=== PATIENT | female | born 1965 | race Caucasian/White ===

== ENCOUNTER 2020-10-22 07:26 | Outpatient (REF) | payer OTHER, SELFPAY ==
--- NOTE | 2020-10-22 07:32 | MM_ITS ---
EXAMINATION: MM SCREENING DIGITAL BREAST TOMOSYNTHESIS, BILATERAL CLINICAL INFORMATION: Screening. Asymptomatic. The lifetime risk of breast cancer based on the Tyrer-Cuzick Model is 4.1%. COMPARISON: Mammography: October 18, 2019 and studies dating back to June 30, 2012 TECHNIQUE: Digital breast tomosynthesis is performed in both the craniocaudal and mediolateral oblique views along with computer-aided detection (CAD). Synthesized 2D images are generated from the tomosynthesis. FINDINGS: There are scattered areas of fibroglandular density (ACR BI-RADS breast composition Category b). There are no significant masses, abnormal calcifications, or other abnormalities. MM/MM tomosynthesis screening BI IMPRESSION: There are no significant changes from prior study. ASSESSMENT: BI-RADS 1: Negative RECOMMENDATION: Routine annual mammography screening. This patient's information was entered into a reminder system with a target due date for their next mammogram.
== END 2020-10-22 07:27 | disposition home or self-care (01) ==
LOC: HO.MAMMO 07:26
PROVIDERS: PCP Nurse Practitioner Family; Visit Provider Family Medicine
DX: Z12.31 Encounter for screening mammogram for malignant neoplasm of breast (principal)
CPT/HCPCS: 77063; 77067

== ENCOUNTER 2021-08-20 14:03 | Outpatient (REF) | payer OTHER, SELFPAY | END 2021-08-20 14:04 | disposition home or self-care (01) | LOC: HO.LNP 14:03 | PROVIDERS: Visit Provider Physician Assistant Medical | DX: L02.91 Cutaneous abscess, unspecified (principal) | CPT/HCPCS: 87071; 87205 ==

== ENCOUNTER 2021-11-25 08:00 | Outpatient (REF) | payer OTHER, SELFPAY ==
--- NOTE | ~2021-11-25 | MM_ITS ---
EXAMINATION: MM SCREENING DIGITAL BREAST TOMOSYNTHESIS, BILATERAL CLINICAL INFORMATION: Screening. Asymptomatic. The lifetime risk of breast cancer based on the Tyrer-Cuzick Model is 4%. COMPARISON: Mammography: 10/22/2020, 10/18/2019, 08/16/2018, 06/27/2017 TECHNIQUE: Digital breast tomosynthesis is performed in both the craniocaudal and mediolateral oblique views along with computer-aided detection (CAD). Synthesized 2D images are generated from the tomosynthesis. FINDINGS: There are scattered areas of fibroglandular density (ACR BI-RADS breast composition Category b). There are no significant masses, abnormal calcifications, or other abnormalities. Parenchymal pattern is similar to prior studies. There is no developing density or architectural abnormality. The axilla and skin contours are unremarkable. No significant changes. MM/MM tomosynthesis screening BI IMPRESSION: No mammographic evidence of malignancy. ASSESSMENT: BI-RADS 1: Negative RECOMMENDATION: Routine annual mammography screening. This patient's information was entered into a reminder system with a target due date for their next mammogram.
== END 2021-11-25 08:01 | disposition home or self-care (01) ==
LOC: HO.MAMMO 08:00
PROVIDERS: PCP Internal Medicine; Visit Provider Internal Medicine
DX: Z12.31 Encounter for screening mammogram for malignant neoplasm of breast (principal)
CPT/HCPCS: 77063; 77067

== ENCOUNTER 2022-01-20 07:12 | Outpatient (REF) | payer OTHER, SELFPAY ==
[2022-01-20 11:29] LABS: MANUAL DIFF FLAG NO
[2022-01-20 11:41] LABS: Basophils Percent Auto 0.7 % (0-2); Hematocrit 38.7 % (37.0-47.0); Hemoglobin 12.5 g/dl (12.0-16.0); Imm Gran Abs Auto 0.01 X10*3/uL (0.00-0.03); Imm Gran Pct Auto 0.3 % (0.0-0.4); Lymphocytes Absolute Auto 1.1 X10*3/uL (1.2-4.9); Lymphocytes Percent Auto 37.7 % (20-40); Mean Corpuscular HGB Conc 32.3 g/dl (31.0-35.0); Mean Corpuscular Volume 105.2 fL (80.0-98.0); Mean Platelet Volume 9.8 fL (9.4-12.3); Monocytes Absolute Auto 0.4 X10*3/uL (0.1-1.2); Monocytes Percent Auto 14.4 % (2-11); Neutrophils Absolute Auto 1.4 x10*3/uL (2.0-8.3); Neutrophils Percent Auto 46.9 % (45-73); Platelet Count 255 X10*3/uL (160-400); Red Blood Count 3.68 X10*6/uL (4.20-5.50); Red Cell Distribution Width 12.4 % (11.0-16.0); White Blood Count 2.9 X10*3/uL (4.8-10.8)
[2022-01-20 12:13] LABS: Alanine Aminotransferase 16 U/L (0-31); Albumin Level 4.3 g/dL (3.5-5.0); Alkaline Phosphatase 64 U/L (39-117); Anion Gap 10 (12-20); Aspartate Amino Transferase 17 U/L (5-31); Bilirubin Total 0.7 mg/dL (0.0-1.0); Blood Urea Nitrogen 9 mg/dL (9-16); Calcium 9.6 mg/dL (8.4-10.2); Carbon Dioxide 30 mmol/L (22-29); Chloride 100 mmol/L (96-108); Cholesterol 239 mg/dL; Estimated Glomerular Filt Rate > 60; Glucose Fasting 104 mg/dL (60-99); HDL Cholesterol 90 mg/dL; LDL Cholesterol Calculated 137 mg/dl; Potassium 4.3 mmol/L (3.3-5.1); Sodium 136 mmol/L (135-145); Total Protein 6.7 g/dL (6.5-8.0); Triglycerides 63 mg/dL
[2022-01-20 12:16] LABS: Free T4 (Free Thyroxine) 1.16 ng/dL (0.71-1.85); Thyroid Stimulating Hormone 0.88 uIU/mL (0.32-4.0)
[2022-01-20 12:36] LABS: Folate 3.5 ng/mL (> or = 4.0); Vitamin B12 243 pg/mL (200-900)
[2022-01-21 10:11] LABS: Thyroglobulin Antibodies 8 IU/mL (< or = 1); Thyroid Peroxidase Antibodies >900 IU/mL (<9)
[2022-01-24 16:56] LABS: Vitamin D 25-OH, D2 <4 ng/mL; Vitamin D 25-OH, D3 31 ng/mL; Vitamin D 25-OH, Total 31 ng/mL (30-100)
== END 2022-01-20 07:13 | disposition home or self-care (01) ==
LOC: HO.HMGCLDS 07:12
PROVIDERS: Visit Provider Internal Medicine
DX: E55.9 Vitamin D deficiency, unspecified (principal); D75.89 Other specified diseases of blood and blood-forming organs; E03.9 Hypothyroidism, unspecified; Z88.9 Allergy status to unspecified drugs, medicaments and biological substances; Z82.49 Family history of ischemic heart disease and other diseases of the circulatory system
CPT/HCPCS: 36415; 80053; 80061; 82306; 82607; 82746; 84439; 84443; 85025; 86376; 86800

== ENCOUNTER 2022-03-03 11:02 | Outpatient (REF) | payer OTHER, SELFPAY ==
--- NOTE | ~2022-03-03 | XR_ITS ---
EXAMINATION: XR LUMBOSACRAL SPINE XR HIP, RIGHT CLINICAL INFORMATION: Hip pain. COMPARISON: None TECHNIQUE: 2 views right hip. 4 views lumbosacral spine. RIGHT HIP: 2 views of the right hip demonstrate the femoral head contour to be smooth. There is no significant degeneration. The joint space appears fairly well preserved. LUMBOSACRAL SPINE: 4 views of the lumbosacral spine AP and lateral demonstrate mild scoliosis convex right apex at L3. There is no listhesis or compression injury. There is felt to be loss of disc height at multiple levels but the vertebral heights are fairly well preserved. Likely degenerative changes at L4-L5 and L5-S1 in the posterior elements. XR/XR lumbar spine 2-3V IMPRESSION: No bony finding in the right hip. Some evidence of early degenerative changes in the lumbosacral spine. Most noted in the lower lumbar region. No listhesis or compression injury.
--- NOTE | ~2022-03-03 | XR_ITS ---
EXAMINATION: XR LUMBOSACRAL SPINE XR HIP, RIGHT CLINICAL INFORMATION: Hip pain. COMPARISON: None TECHNIQUE: 2 views right hip. 4 views lumbosacral spine. RIGHT HIP: 2 views of the right hip demonstrate the femoral head contour to be smooth. There is no significant degeneration. The joint space appears fairly well preserved. LUMBOSACRAL SPINE: 4 views of the lumbosacral spine AP and lateral demonstrate mild scoliosis convex right apex at L3. There is no listhesis or compression injury. There is felt to be loss of disc height at multiple levels but the vertebral heights are fairly well preserved. Likely degenerative changes at L4-L5 and L5-S1 in the posterior elements. XR/XR hip RT min 2V IMPRESSION: No bony finding in the right hip. Some evidence of early degenerative changes in the lumbosacral spine. Most noted in the lower lumbar region. No listhesis or compression injury.
== END 2022-03-03 11:03 | disposition home or self-care (01) ==
LOC: HO.XRAY 11:02
PROVIDERS: PCP Internal Medicine; Visit Provider Internal Medicine
DX: M25.551 Pain in right hip (principal); M54.31 Sciatica, right side
CPT/HCPCS: 72100; 73502

== ENCOUNTER 2022-04-06 07:38 | Outpatient (REF) | payer OTHER, SELFPAY ==
--- NOTE | ~2022-04-06 | XR_ITS ---
EXAMINATION: XR SHOULDER, LEFT CLINICAL INFORMATION: Pain COMPARISON: Previous x-ray from 2009 and MRI 2011 TECHNIQUE: Three views of the left shoulder. FINDINGS: Bone alignment is normal. No fracture or dislocation is seen. The glenohumeral joint is normal. There is mild arthritis at the acromioclavicular joint with small osteophytes. There are mild degenerative changes of the greater tuberosity. Soft tissues are unremarkable. XR/XR shoulder LT min 2V IMPRESSION: Mild degenerative changes at the acromioclavicular joint.
== END 2022-04-06 07:39 | disposition home or self-care (01) ==
LOC: HO.HOSX 07:38
PROVIDERS: Visit Provider Physician Assistant
DX: M75.102 Unspecified rotator cuff tear or rupture of left shoulder, not specified as traumatic (principal)
CPT/HCPCS: 20610; 73030; 99202; J1040

== ENCOUNTER 2022-04-21 08:00 | Outpatient (RCR) | payer OTHER, SELFPAY ==
--- NOTE | 2022-03-18 16:34 | MHC.PT.EP ---
[facility] [place] [facility] [place] [facility] [place] [facility] [address] Amada Tinajero [address] [phone] F: [phone] F: [phone] F: [phone] F: [phone] Physical Therapy Plan of Care Date of Evaluation: Date of Surgery: Diagnosis: Pain in L shoulder. Assessment: Pt is a 56 y/o female referred to PT for eval and treat of L shoulder pain who presents with signs and sx consistent with shoulder dysfunction resulting in decreased tolerance and ability to perform reaching a high shelf, dressing pullovers, reaching neck and back for hygiene/ dressing and carrying objects of weight secondary to decreased UE strength and ROM, decreased posture, increased tissue tension and pain. Pt is deemed an appropriate candidate to receive skilled PT in order to address her physical limitations to improve her functional ability. Frequency and Duration: The patient will be seen 2 x / wk x 5 wks. Short Term Goals: Initiate HEP. Improve baseline pain to < 3/10 with activity; initial 5/0. Snf Goals: I with HEP. improve L shoulder ER MMT by at least 1/2 MMT grade; initial 4-/5. Pt will be able to dress pullovers with managed Sx; initial: 5/10. Pt will be able to place object on high shelf with managed Sx; initial: 5/10. Treatment Plan: Modalities to reduce pain, spasms and effusion. Manual therapy to restore motion and function. Therapeutic exercise to improve strength and flexibility. Neuromuscular re-education for posture and balance. Therapeutic activities to return to functional activities of daily living. Electronically signed by: Tahir Vidales PT. Please sign and return to therapist. Thank you for your referral.
== END 2022-04-21 09:11 | disposition home or self-care (01) ==
LOC: HO.PTCHIC 08:00
PROVIDERS: PCP Internal Medicine; Visit Provider Internal Medicine
DX: M25.512 Pain in left shoulder (principal)
CPT/HCPCS: 97110; 97161

== ENCOUNTER 2022-08-27 07:10 | Outpatient (REF) | payer OTHER, SELFPAY ==
[2022-08-27 11:25] LABS: MANUAL DIFF FLAG NO
[2022-08-27 11:44] LABS: Basophils Percent Auto 0.9 % (0-2); Eosinophils Percent Auto 0.9 % (0-4); Hematocrit 36.3 % (37.0-47.0); Hemoglobin 12.3 g/dl (12.0-16.0); Lymphocytes Absolute Auto 1.3 X10*3/uL (1.2-4.9); Lymphocytes Percent Auto 38.5 % (20-40); Mean Corpuscular HGB Conc 33.9 g/dl (31.0-35.0); Mean Corpuscular Hemoglobin 34.9 pg (27.0-33.0); Mean Corpuscular Volume 103.1 fL (80.0-98.0); Mean Platelet Volume 9.8 fL (9.4-12.3); Monocytes Absolute Auto 0.5 X10*3/uL (0.1-1.2); Monocytes Percent Auto 16.2 % (2-11); Neutrophils Absolute Auto 1.4 x10*3/uL (2.0-8.3); Neutrophils Percent Auto 43.5 % (45-73); Platelet Count 260 X10*3/uL (160-400); Red Blood Count 3.52 X10*6/uL (4.20-5.50); White Blood Count 3.3 X10*3/uL (4.8-10.8)
[2022-08-27 12:25] LABS: Folate > 20.0 ng/mL (> or = 4.0); Vitamin B12 366 pg/mL (200-900)
[2022-08-27 12:26] LABS: Thyroid Stimulating Hormone 2.19 uIU/mL (0.32-4.0)
[2022-08-27 12:28] LABS: Alanine Aminotransferase 18 U/L (0-31); Albumin Level 4.5 g/dL (3.5-5.0); Alkaline Phosphatase 58 U/L (39-117); Anion Gap 16 (12-20); Aspartate Amino Transferase 20 U/L (5-31); Bilirubin Total 0.4 mg/dL (0.0-1.0); Blood Urea Nitrogen 6 mg/dL (9-16); Calcium 9.5 mg/dL (8.4-10.2); Carbon Dioxide 25 mmol/L (22-29); Chloride 97 mmol/L (96-108); Cholesterol 247 mg/dL; Estimated Glomerular Filt Rate > 60; Glucose Fasting 90 mg/dL (60-99); HDL Cholesterol 95 mg/dL; LDL Cholesterol Calculated 138 mg/dl; Potassium 4.2 mmol/L (3.3-5.1); Sodium 134 mmol/L (135-145); Total Protein 6.9 g/dL (6.5-8.0); Triglycerides 73 mg/dL
== END 2022-08-27 07:11 | disposition home or self-care (01) ==
LOC: HO.HMGCLDS 07:10
PROVIDERS: PCP Internal Medicine; Visit Provider Internal Medicine
DX: Z00.00 Encounter for general adult medical examination without abnormal findings (principal); E53.8 Deficiency of other specified B group vitamins; E03.9 Hypothyroidism, unspecified; E78.5 Hyperlipidemia, unspecified; D72.819 Decreased white blood cell count, unspecified
CPT/HCPCS: 36415; 80053; 80061; 82607; 82746; 84443; 85025

== ENCOUNTER → 2022-09-09 13:55 | Outpatient (BNVA) | payer OTHER, SELFPAY | PROVIDERS: PCP Internal Medicine; Visit Provider Physician Assistant | DX: M75.102 Unspecified rotator cuff tear or rupture of left shoulder, not specified as traumatic (principal) | CPT/HCPCS: 20610; J1100 ==

== ENCOUNTER 2022-12-01 07:40 | Outpatient (REF) | payer OTHER, SELFPAY ==
--- NOTE | ~2022-12-01 | MM_ITS ---
EXAMINATION: MM SCREENING DIGITAL BREAST TOMOSYNTHESIS, BILATERAL CLINICAL INFORMATION: Screening. Asymptomatic. The lifetime risk of breast cancer based on the Tyrer-Cuzick Model is 3.9%. COMPARISON: Mammography: November 25, 2021 and studies dating back to December 23, 2015 TECHNIQUE: Digital breast tomosynthesis is performed in both the craniocaudal and mediolateral oblique views along with computer-aided detection (CAD). Synthesized 2D images are generated from the tomosynthesis. FINDINGS: There are scattered areas of fibroglandular density (ACR BI-RADS breast composition Category b). There are no significant masses, abnormal calcifications, or other abnormalities. MM/MM tomosynthesis screening BI IMPRESSION: No significant changes from prior exam. ASSESSMENT: BI-RADS 1: Negative RECOMMENDATION: Routine annual mammography screening. This patient's information was entered into a reminder system with a target due date for their next mammogram.
== END 2022-12-01 07:41 | disposition home or self-care (01) ==
LOC: HO.MAMMO 07:40
PROVIDERS: PCP Internal Medicine; Visit Provider Internal Medicine
DX: Z12.31 Encounter for screening mammogram for malignant neoplasm of breast (principal)
CPT/HCPCS: 77063; 77067

== ENCOUNTER 2023-02-23 07:02 | Outpatient (REF) | payer OTHER, SELFPAY ==
[2023-02-23 12:27] LABS: Alanine Aminotransferase 20 U/L (0-31); Albumin Level 4.2 g/dL (3.5-5.0); Alkaline Phosphatase 60 U/L (39-117); Anion Gap 9 (12-20); Aspartate Amino Transferase 21 U/L (5-31); Bilirubin Total 0.5 mg/dL (0.0-1.0); Blood Urea Nitrogen 8 mg/dL (9-16); Calcium 9.4 mg/dL (8.4-10.2); Carbon Dioxide 32 mmol/L (22-29); Chloride 101 mmol/L (96-108); Cholesterol 254 mg/dL; Estimated Glomerular Filt Rate > 60; Glucose Fasting 89 mg/dL (60-99); HDL Cholesterol 81 mg/dL; LDL Cholesterol Calculated 150 mg/dl; Potassium 4.3 mmol/L (3.3-5.1); Sodium 138 mmol/L (135-145); Total Protein 6.6 g/dL (6.5-8.0); Triglycerides 116 mg/dL
[2023-02-23 12:46] LABS: Folate 17.9 ng/mL (> or = 4.0); Thyroid Stimulating Hormone 1.49 uIU/mL (0.32-4.0); Vitamin B12 511 pg/mL (200-900)
== END 2023-02-23 07:03 | disposition home or self-care (01) ==
LOC: HO.HMGCLDS 07:02
PROVIDERS: PCP Internal Medicine; Visit Provider Internal Medicine
DX: M25.551 Pain in right hip (principal); E78.5 Hyperlipidemia, unspecified; E06.3 Autoimmune thyroiditis; E53.8 Deficiency of other specified B group vitamins
CPT/HCPCS: 36415; 80053; 80061; 82607; 82746; 84443

== ENCOUNTER → 2023-05-11 11:02 | Outpatient (BNVA) | payer OTHER, SELFPAY | PROVIDERS: PCP Internal Medicine; Visit Provider Anesthesiology | DX: G89.4 Chronic pain syndrome (principal); M46.1 Sacroiliitis, not elsewhere classified; M53.3 Sacrococcygeal disorders, not elsewhere classified; M51.36 Other intervertebral disc degeneration, lumbar region; M54.50 Low back pain, unspecified | CPT/HCPCS: 99202 ==

== ENCOUNTER 2023-05-31 06:10 | Outpatient (REF) | payer OTHER, SELFPAY ==
--- NOTE | ~2023-05-31 | FL_ITS ---
EXAMINATION: XR FLUOROSCOPY WITH IMAGES CLINICAL INFORMATION: Sacroiliitis, not elsewhere classified. Right SI joint injection. COMPARISON: None available. TECHNIQUE: Fluoroscopy Supervised By: Dr. Yakov Gruber. Fluoroscopy Time: 0.1 minute. Cumulative Dose: 0.680 mGy. DAP: 0.0118 Gycm2. Images: 1. FINDINGS: A single digital image reveals needle positioned in the right SI joint with contrast opacifying adjacent soft tissues and the SI joint. The SI joints spaces maintained normal. No bony abnormality seen on the visualized images. FL/FL guidance in treatment room IMPRESSION: Fluoroscopy was provided to referring physician for right SI joint injection.
== END 2023-05-31 06:11 | disposition home or self-care (01) ==
LOC: CF 06:10
PROVIDERS: Visit Provider Anesthesiology
DX: M46.1 Sacroiliitis, not elsewhere classified (principal); M54.50 Low back pain, unspecified; M53.3 Sacrococcygeal disorders, not elsewhere classified; M51.36 Other intervertebral disc degeneration, lumbar region
CPT/HCPCS: 27096; A9585

== ENCOUNTER 2023-05-31 13:01 | Outpatient (AMB) | payer OTHER, SELFPAY ==
--- NOTE | 2023-05-31 13:10 | MHC.OFFVIS ---
Intake Vital Signs 05/31/23 13:11 05/31/23 14:45 Height 5 ft 3 in 5 ft 3 in Weight 108 lb 108 lb BMI 19.1 19.1 BP 120/58 L 98/58 L Blood Pressure Location Lt brachial Rt brachial Position Sitting Sitting Respiration 12 14 Pulse 103 H 66 Pulse Source Pulse Oximeter Pulse Oximeter Pulse Oximetry (%) 98 99 Oxygen Delivery Method Room Air Room Air Comment Pre-Op Post-op Intake Visit Reasons: R DX SIJ INJ *Tetracain/chlorprocaine/gadavist Allergies erythromycin base [ERYTHROMYCIN BASE] Allergy (Intermediate, Verified 05/31/23 13:15) HIVES gluten [GLUTEN] Allergy (Intermediate, Verified 05/31/23 13:15) tongue swells, tingling peanut Allergy (Intermediate, Verified 05/31/23 13:15) TONGUE SWELLS soy [SOY] Allergy (Intermediate, Verified 05/31/23 13:15) tongue swells PFSH Medical History Autoimmune thyroiditis B12 deficiency Chronic leukopenia Hyponatremia Hypothyroidism Left shoulder pain Macrocytosis Migraines Multiple allergies Nausea Physical exam Right hip pain Right sided sciatica Surgical History History of cholecystectomy History of foot surgery Tubal ligation status Family History Mother Lung cancer Hypercholesteremia Father No problems noted. Family/Other Substance use disorder Mental health disorder Social History Housing: House Alcohol intake: former Patient Tobacco Use Status: Former Tobacco user Tobacco use type: Cigarette e-Cigarette/Vaping Use: Never Used Second Hand Smoke Exposure: No service: No Current occupational status: employed Current occupational exposures/hazards: No Cognitive needs: No Hearing needs: No Vision needs: No Physical Exam Vital Signs: Last Vital Signs Pulse 66 05/31/23 14:45 Resp 14 05/31/23 14:45 BP 98/58 L 05/31/23 14:45 Pulse Ox 99 05/31/23 14:45 Oxygen Delivery Method Room Air 05/31/23 14:45 BMI result Body Mass Index 19.1 Assessment & Plan Assessment & Plan (1) Low back pain: Code(s): M54.50 - Low back pain, unspecified (2) Sacroiliitis: Code(s): M46.1 - Sacroiliitis, not elsewhere classified Plan: Right diagnostic sacroiliac joint injection. Informed consent was explained thoroughly to the patient. All questions about benefits and risks for the procedure were answered. Patient came to the operating room and was positioned prone on the operating table with the pillow under the pelvis. Time out was performed delineating name and of the patient, allergies and the nature of the procedure. Patient reported unknown allergies as a rash and swelling of the tissues of the face and neck as result of epidural steroid injections. The decision was made to avoid a might local anesthetics and iodine containing contrasts: See below. The lower back and buttocks of the patient were prepped with ChloraPrep prepped and draped with sterile utility towels. C-arm was brought over the operating field and sq picture of patient's pelvis was demonstrated on the screen. For the right joint tilting C-arm contralateral to the site of the joint the most posterior portion of the joints was superimposed with anterior silhouette of the joint. Skin was injected in the projection of the joint slightly medial to the location of the joint with 25 gauge 1/2 inch needle using local lidocaine 2% .After that 22 gauge 3 and 1/2 inch needle was driven to the right joint in tunnel vision fashion. When needle entered the joint capsule injection of the contrast gadavist was performed demonstrating intra-articular and minimally periarticular spread of the contrast. After that 4 cc. of tetracaine 1% mixed with chlorpromazine 1% was injected into the joint. Upon completion of the injections the needle was removed Sterile dressing was applied. Upon completion of the injection patient was taken outside of the operating room to the recovery room where recovered uneventfully. (3) Sacroiliac joint dysfunction of right side: Code(s): M53.3 - Sacrococcygeal disorders, not elsewhere classified (4) Disc degeneration, lumbar: Code(s): M51.36 - Other intervertebral disc degeneration, lumbar region (5) Chronic pain syndrome: Code(s): G89.4 - Chronic pain syndrome Plan Without MRI available to me I cannot make in conclusion how significant the nerve root compression was demonstrated on her MRI. The [facility] performed therapeutic transforaminal epidural steroid injection on the right at L5 nerve root and she developed allergy. She reported at the best her pain relief lasted after the procedure only for couple of weeks. After physical examination I thing her problem mostly secondary to sacroiliitis on the right. I would like to perform diagnostic sacroiliac joint injection to support this hunch. However she developed unknown medication allergies during the 1st injection. It could be allergy to contrast media or local anesthetic. I will request full description of the procedure from [facility]. I also will request full report of the MRI from [facility]. I also will consider sending this patient to Joey castellano to determine which medication actually she is allergic to. In 2 weeks she will give us a call and the we will decide whether not she is ready to go for right diagnostic sacroiliac joint injection. Theoretically I can perform injection with tetracaine and use chloroprocaine for the skin to avoid amide local anesthetics she most likely had when she had TFESI. Orders: Orders FL guidance in treatment room 05/31/23 M46.1 - Sacroiliitis, not elsewhere classified Coding Level of Care Code Procedure Only Diagnoses Low back pain M54.50 Sacroiliitis M46.1 Sacroiliac joint dysfunction of right side M53.3 Disc degeneration, lumbar M51.36 Chronic pain syndrome G89.4
[2023-05-31 13:11] VITALS: BP 120/58; PULSE 103; RESP 12; O2SAT 98; BMI 19.1
[2023-05-31 14:45] VITALS: BP 98/58; PULSE 66; RESP 14; O2SAT 99; BMI 19.1
== END 2023-05-31 14:28 | disposition home or self-care (01) ==
PROVIDERS: PCP Internal Medicine; Visit Provider Anesthesiology
DX: M46.1 Sacroiliitis, not elsewhere classified (principal)
CPT/HCPCS: 27096

== ENCOUNTER 2023-06-02 10:39 | Outpatient (AMB) | payer OTHER, SELFPAY ==
--- NOTE | 2023-06-02 10:40 | A.OFFVIS_ITS ---
Intake Vital Signs 06/02/23 10:45 Height 5 ft 3 in Weight 108 lb BMI 19.1 BP 128/80 Blood Pressure Location Rt brachial Position Sitting Respiration 16 Pulse 58 Pulse Source Pulse Oximeter Pulse Oximetry (%) 98 Oxygen Delivery Method Room Air Intake Visit Reasons: R DX SIJ INJ 05/31/23 Intake Note: patient comes in for post-op. Allergies erythromycin base [ERYTHROMYCIN BASE] Allergy (Intermediate, Verified 06/02/23 10:40) HIVES gluten [GLUTEN] Allergy (Intermediate, Verified 06/02/23 10:40) tongue swells, tingling peanut Allergy (Intermediate, Verified 06/02/23 10:40) TONGUE SWELLS soy [SOY] Allergy (Intermediate, Verified 06/02/23 10:40) tongue swells HPI HPI Comments History of Present Illness Details Belen is in my office to discuss the results of sacroiliac joint injection on the right diagnostic. She reports almost complete pain relieve on the right after the injection. Interestingly enough she reports pain aggravation at the left side. She reports improvement in the pain in the lower extremity as well after the injection. The pain was not eliminated completely in the lower extremity but it was significantly improved at least 50%. The longevity of the pain relief lasted at least 5-6 hours which corresponds to the action of the tetracaine, medication with which injection was performed. Few mode of treatments were explained to the patient. I explained to her possibility to treat her pain with sacroiliac joint stabilization and fusion on the right, potentially bilateral. Also explained to her possibility to treat her pain with PNS stim wave on the right potentially bilateral as well. We can take a closer look to the MRI of this patient after the procedure would be done for possibility of pain radiating to the right lower extremity. I explained to the patient that steroid injections could be done for the patient after she would go to allergologist in December of 2023 -to rule out allergy to any medi cations with which she received epidural steroid injection with [facility]. The patient is not sure what mode of action she will choose. She will give us a call when she will decide what she wants to do. Prior: very pleasant 57 years old female who presents in my office with complains on lower back pain with radiation of the pain to the level of the ankle on the lateral surface of the right lower extremity. She reports her pain started 1 year ago about February of 2022. She relates this pain to her job which is requiring her to perform heavy lifting from time to time. She was a subject of [facility] practice and received L5 transforaminal epidural steroid injection. She developed severe allergic reaction to 1 of her medications which were given during the procedure. It was rash and skin redness As well as itching all over the body. She is working part-time 28 hours a week. She reports that movements aggravate her pain. Heat cold and topical medications as well as oral medications alleviate her pain. The pain is most severe after work and the level of the pain is 6 to 7/10. Her past medical history significant for hypothyroidism headaches and GERD. Past surgical history significant for gallbladder surgery appendectomy and bilateral tubal ligation twice. Apparently after the 1st bilateral tubal ligation she delivered a healthy child. [facility] Medical History Autoimmune thyroiditis B12 deficiency Chronic leukopenia Hyponatremia Hypothyroidism Left shoulder pain Macrocytosis Migraines Multiple allergies Nausea Physical exam Right hip pain Right sided sciatica Surgical History History of cholecystectomy History of foot surgery Tubal ligation status Family History Mother Lung cancer Hypercholesteremia Father No problems noted. Family/Other Substance use disorder Mental health disorder Social History Housing: House Alcohol intake: former Patient Tobacco Use Status: Former Tobacco user Tobacco use type: Cigarette e-Cigarette/Vaping Use: Never Used Second Hand Smoke Exposure: No service: No Current occupational status: employed Current occupational exposures/hazards: No Cognitive needs: No Hearing needs: No Vision needs: No Review of Systems Const All systems reviewed & are unremarkable except as noted in HPI and below ENT Reports Normal hearing present Neuro Reports Normal hearing present, Denies Abnormal speech present, Denies confusion and Denies Sensory deficit (Neuro) Psych Denies confusion Physical Exam Vital Signs: Last Vital Signs Pulse 58 06/02/23 10:45 Resp 16 06/02/23 10:45 BP 128/80 06/02/23 10:45 Pulse Ox 98 06/02/23 10:45 Oxygen Delivery Method Room Air 06/02/23 10:45 BMI result Body Mass Index 19.1 Const General: no acute distress; No confusion Orientation/consciousness: patient oriented x3 and No confusion Eyes General: appearance normal, both eyes and all related structures Pupils: Equal, round and reactive pupils present EOM: EOMs intact bilaterally Neck Neck: Yes full ROM Chest Chest palpation & inspection: normal inspection of the chest Resp Effort & Inspection: normal respiratory effort, able to speak in complete sentences, normal respiratory pattern, no audible wheezes and no cough Cardio Jugular venous distension: no JVD GI Inspection: Yes normal to inspection Back/Spine/Pelvis Other: Able to stand on bilateral tiptoes and bilateral heels without difficulty. Able to flex her right hip as well as her left hip without difficulty against resistance. Reports aggravation of the pain with hip flexion against resistance-[facility] positive test. SLR is negative for pain increase. Dorsiflexion of bilateral feet at maximal SLR is negative for pain increase. She reports pain on the back of her legs with SLR but not increase of the pain in bilateral areas of her lumbar spine. Able full flex herself forward and backwards but reports pain aggravation with flexing forward as well as flexing backwards. Neuro General: patient oriented x3, gait normal and No confusion Cranial nerves: Yes CN's II-XII intact bilaterally, Yes Equal, round and reactive pupils present, Yes Normal hearing present and Yes Ability to bila terally elevate shoulders present Speech: No Abnormal speech present Gait exam (Neuro): Normal gait present Motor exam (neuro): 5/5 motor strength present throughout Sensory Exam: No Sensory deficit (Neuro) Extrem General: No pedal edema Psych Speech and movement: Normal speech and movement present Affect: normal affect Attitude: cooperative Thought process: Normal thought process present Thought content: Normal thought content present Insight: Good insight present (Psych) Judgement: Good judgement present (Psych) Assessment & Plan Assessment & Plan (1) Low back pain: Code(s): M54.50 - Low back pain, unspecified (2) Sacroiliitis: Code(s): M46.1 - Sacroiliitis, not elsewhere classified (3) Sacroiliac joint dysfunction of right side: Code(s): M53.3 - Sacrococcygeal disorders, not elsewhere classified (4) Disc degeneration, lumbar: Code(s): M51.36 - Other intervertebral disc degeneration, lumbar region (5) Chronic pain syndrome: Code(s): G89.4 - Chronic pain syndrome Plan Without MRI available to me I cannot make in conclusion how significant the nerve root compression was demonstrated on her MRI. The [facility] performed therapeutic transforaminal epidural steroid injection on the right at L5 nerve root and she developed allergy. She reported at the best her pain relief lasted after the procedure only for couple of weeks. After physical examination I thing her problem mostly secondary to sacroiliitis on the right. I would like to perform diagnostic sacroiliac joint injection to support this hunch. However she developed unknown medication allergies during the 1st injection. It could be allergy to contrast media or local anesthetic. I am still waiting for MRI from [facility] to be delivered to us. However meanwhile I at least at this time fairly convinced that her major problem is sacroiliitis. Diagnostic sacroiliac joint injection resulted in significant pain relieve on the right. She got injected very small does of tetracaine into the right SI joint. Interestingly enough her left SI joint started to hurt more after the injection. Potentially she has bilateral sacroiliitis. Pain tech SI stabilization with fusion was explained to the patient. PNS stim wave also was explained to the patient's. Steroid injections also potentially available to treat her pain however only after December of 2023 when she will have her appointment with allergologist. She was not sure what to choose she will think about the options and she will give us a call and schedule an appointment to discuss it. Coding Level of Care Code Est Pt Level 4 (06981) Diagnoses Low back pain M54.50 Sacroiliitis M46.1 Sacroiliac joint dysfunction of right side M53.3 Disc degeneration, lumbar M51.36 Chronic pain syndrome G89.4
[2023-06-02 10:45] VITALS: BP 128/80; PULSE 58; RESP 16; O2SAT 98; BMI 19.1
== END 2023-06-02 11:18 | disposition home or self-care (01) ==
PROVIDERS: PCP Internal Medicine; Visit Provider Anesthesiology
DX: M54.50 Low back pain, unspecified (principal); M46.1 Sacroiliitis, not elsewhere classified; M53.3 Sacrococcygeal disorders, not elsewhere classified; M51.36 Other intervertebral disc degeneration, lumbar region; G89.4 Chronic pain syndrome
CPT/HCPCS: 99214

== ENCOUNTER → 2023-06-02 10:39 | Outpatient (BNVA) | payer OTHER, SELFPAY | PROVIDERS: PCP Internal Medicine; Visit Provider Anesthesiology | DX: M54.50 Low back pain, unspecified (principal); M46.1 Sacroiliitis, not elsewhere classified; M53.3 Sacrococcygeal disorders, not elsewhere classified; M51.36 Other intervertebral disc degeneration, lumbar region; G89.4 Chronic pain syndrome | CPT/HCPCS: 99212 ==

== ENCOUNTER 2023-06-02 19:15 | Emergency (ER) | payer OTHER, SELFPAY ==
--- NOTE | ~2023-06-02 | XR_ITS ---
EXAMINATION: XR FOOT, RIGHT CLINICAL INFORMATION: Pain. COMPARISON: None available. TECHNIQUE: AP, lateral, and oblique views of the right foot. FINDINGS: There is expansile lesion in the proximal end proximal phalanx fifth digit with pathological f fracture suspected. There is likely partial amputation fifth distal metacarpal. Rest of the visualized left foot is unremarkable. The ankle mortise and subtalar joints are normal. XR/XR foot RT min 3V IMPRESSION: 1. Expansile lesion proximal end proximal phalanx fifth digit with pathological fracture suspected. Recommend MRI with and without contrast. 2. There is partial amputation distal fifth metatarsal.. 3. Rest of the right foot is unremarkable
[2023-06-02 19:24] VITALS: BP 121/82; PULSE 96; RESP 18; TEMP 36.7; O2SAT 99; BMI 19.6
--- NOTE | 2023-06-02 20:07 | ED_ITS ---
HPI - Extremity Injury (Lower) General Chief Complaint: Extremity Injury, Lower Stated Complaint: Injury to right pinky toe Time Seen by Provider: 06/02/23 19:51 Source: patient and family Mode of arrival: ambulatory Limitations: no limitations History of Present Illness HPI Narrative: 57-year-old female walked to the emergency department after she stub her right foot at the bottom of the bed causing deformity of the small toe, patient declined any fall after no other injuries. Related Data Home Medications Medication Instructions Recorded Confirmed acetaminophen 500 mg tablet 1,000 mg PO Q6H PRN 04/16/22 03/09/23 (Tylenol Extra Strength) Previous Rx's Medication Instructions Recorded cetirizine 10 mg capsule (Zyrtec) 10 mg PO DAILY 90 days #90 caps 04/07/23 Synthroid 88 mcg tablet 88 mcg PO DAILY 90 days #90 tabs 04/26/23 (levothyroxine) tizanidine 2 mg tablet 2 mg PO TID 30 days #90 tabs 06/01/23 ibuprofen 600 mg tablet 600 mg PO Q8H PRN pain #20 tabs 06/02/23 Allergies Allergy/AdvReac Type Severity Reaction Status Date / Time erythromycin base Allergy Intermediate HIVES Verified 06/02/23 19:24 [ERYTHROMYCIN BASE] gluten [GLUTEN] Allergy Intermediate tongue Verified 06/02/23 19:24 swells, tingling peanut Allergy Intermediate TONGUE Verified 06/02/23 19:24 SWELLS soy [SOY] Allergy Intermediate tongue Verified 06/02/23 19:24 swells Review of Systems Review of Systems: All other systems are reviewed and are negative Constitutional: Reports as per HPI and Reports no additional constitutional complaints Eyes: Reports as per HPI and Reports no additional eye complaints Reports system reviewed and no additional complaints, except as documented Cardiovascular: Reports as per HPI and Reports no additional cardiovascular complaints Respiratory: Reports as per HPI and Reports no additional respiratory complaints Gastrointestinal: Reports as per HPI and Reports no additional gastrointestinal complaints Genitourinary: Reports no additional female genitourinary complaints Musculoskeletal: Reports no additional musculoskeletal complaints Skin/Breast: Reports system reviewed and no additional complaints, except as do cu Psychiatric: Reports no additional psychiatric complaints Endocrine: Reports no additional endocrine complaints Hematologic/Lymphatic: Reports no additional hematologic/lymphatic complaints Allergic/Immunologic: Reports no additional allergic/immunologic complaints Reports system reviewed and no additional complaints, except as documented and Reports Abnormal speech present PMFSH Past Medical History Medical History Autoimmune thyroiditis B12 deficiency Chronic leukopenia Hyponatremia Hypothyroidism Left shoulder pain Macrocytosis Migraines Multiple allergies Nausea Physical exam Right hip pain Right sided sciatica Surgical History History of cholecystectomy History of foot surgery Tubal ligation status Family History Family History Mother Lung cancer Hypercholesteremia Father No problems noted. Family/Other Substance use disorder Mental health disorder Social History Social History Housing: House Alcohol intake: former Patient Tobacco Use Status: Former Tobacco user Tobacco use type: Cigarette e-Cigarette/Vaping Use: Never Used Second Hand Smoke Exposure: No Advance Directives: No Advance Directives Information Provided: No service: No Current occupational status: employed Current occupational exposures/hazards: No Cognitive needs: No Hearing needs: No Vision needs: No Physical Exam Vital Signs: Vital Signs: Last Vital Signs Temp 98.0 F 06/02/23 19:24 Pulse 96 06/02/23 19:24 Resp 18 06/02/23 19:24 BP 121/82 06/02/23 19:24 Pulse Ox 99 06/02/23 19:24 O2 Del Method Room Air 06/02/23 19:24 BMI result Body Mass Index 19.6 Vital signs have been reviewed as appeared to be correct. Blood pressure normal. Heart rate normal. Respiration rate normal. Temperature normal. Oxygen saturation normal. Appearance: Alert. Oriented X3. No acute distress. Head: Normal external exam. Normocephalic. Atraumatic. No Das signs noted. No raccoon eyes noted Eyes: PERRLA. EOMI. Conjunctiva and sclera normal. Eyelids normal. ENT: TM's Normal. Pharynx normal. Uvula midline. Moist mucous membranes. No trismus noted. No drooling noted. No muffled voice noted. Neck: Normal inspection. Neck supple. FROM. No adenopathy. Thyroid Normal. No meningeal signs. No neck mass noted. CVS: Normal heart rate and rhythm. Heart sound normal. No murmurs noted. Pulses normal throughout. Respiratory: No respiratory distress. Painless inspiration. Breath sounds normal. No wheezes/rales/rhonchi noted. Chest nontender. No accessory muscle usage noted or decreased air movement noted. Abdomen: Soft and nontender. Bowel sounds normal in all 4 quadrants. No distention noted. No organomegaly noted. No visible injury noted. Back: No CVA tenderness. Full range of motion noted. Skin: Skin warm and dry. Normal skin color. Normal skin turgor. No rashes/lesions/lacerations noted. Extremities: Right 5th toe deformity in the abducted position. Neuro: Oriented X 3. Cranial nerve exam: II-XII are grossly intact No motor deficit. No sensory deficit. Reflexes normal. Course Course Course Narrative: A 57-year-old female with 5th distal metatarsal fracture will reduce and collin- tape with ortho shoe. Despite adequate pain control in the emergency department patient is refusing manipulation and attempt to reduction. Reducing the fracture under conscious sedation was discussed with the patient who adamantly refuse the reduction and the conscious sedation. Medications Administered Discontinued Medications Generic Name Dose Route Start Last Admin Trade Name Freq PRN Reason Stop Dose Admin Oxycodone HCl 5 mg 06/02/23 20:03 06/02/23 20:10 Oxycodone Hcl Immed Release 5 Mg Tablet PO 06/02/23 20:04 5 mg ONCE ONE Administration Medical Decision Making Differential Diagnosis Differential Diagnoses: The differential diagnosis associated with the presentation includes (Toe fracture, metatarsal fracture, dislocation.) Admission/Observation Consideration of admission/observation: Escalation of care including admission/observation considered Independent Interpretation I performed an independent interpretation of an: Plain X-Ray (Right foot: Distal metatarsal fracture with dislocation) Radiology Impression Discussion of test interpretation with radiology: I have reviewed the radiologist's reading. Discharge Plan Discharge Clinical Impression: Displaced fracture of fifth metatarsal bone, right foot, initial encounter for closed fracture Patient Disposition: Home, Self-Care Instructions: Foot Fracture in Adults (ED) Prescriptions: New ibuprofen 600 mg tablet 600 mg PO Q8H PRN (Reason: pain) Qty: 20 0RF No Action Zyrtec 10 mg capsule 10 mg PO DAILY 90 Days Qty: 90 3RF levothyroxine [Synthroid] 88 mcg tablet 88 mcg PO DAILY 90 Days Qty: 90 0RF tizanidine 2 mg tablet 2 mg PO TID 30 Days Qty: 90 6RF acetaminophen [Tylenol Extra Strength] 500 mg tablet 1,000 mg PO Q6H PRN Referrals: West Yepez MD [Physician] - Stand Alone Forms: Work/School Release
[2023-06-02] MEDS: oxyCODONE HCl Immed Release 5 MG TABLET PO (20:10)
--- NOTE | 2023-06-02 20:14 | PC.NURSE ---
pt medicated per Jan for 10 right toe pain
[2023-06-02] MEDS: Acetaminophen 325 MG TABLET 650 MG PO (21:40)
== END 2023-06-02 21:46 | disposition home or self-care (01) ==
PROVIDERS: Emergency Provider Emergency Medicine; PCP Internal Medicine
DX: S92.351A Displaced fracture of fifth metatarsal bone, right foot, initial encounter for closed fracture (principal); W22.03XA Walked into furniture, initial encounter; Y93.9 Activity, unspecified; Y92.013 Bedroom of single-family (private) house as the place of occurrence of the external cause; Y99.9 Unspecified external cause status
CPT/HCPCS: 73630; 99283; 99284

== ENCOUNTER 2023-06-07 12:22 | Outpatient (AMB) | payer OTHER, SELFPAY ==
--- NOTE | 2023-06-07 12:28 | MHC.OFFVIS ---
Intake Intake Visit Reasons: FC- 5th distal metatarsal fracture Intake Note: Belen is a 57 year old female who presents today for a fracture care appointment for her right pinky toe fx, DOI 06/02/23. Patient states she stub her right foot on the frame of the bed causing her pinky toe a lot of pain. She states throbbign pain and it is cold to the touch. Denies numbness and tingling. Allergies erythromycin base [ERYTHROMYCIN BASE] Allergy (Intermediate, Verified 06/07/23 12:33) HIVES gluten [GLUTEN] Allergy (Intermediate, Verified 06/07/23 12:33) tongue swells, tingling peanut Allergy (Intermediate, Verified 06/07/23 12:33) TONGUE SWELLS soy [SOY] Allergy (Intermediate, Verified 06/07/23 12:33) tongue swells HPI FC- 5th distal metatarsal fracture HPI Details 57-year-old female who presents in the office today for an evaluation of right foot pain. The patient presented to the ED on 06/02/2023 status post stubbing her right foot at the bottom of her bed. X-rays of the right foot were obtained. The 5th toe was reduced and collin taped. She reports the pinky toe has a throbbing pain and is cold to the touch. She denies numbness or tingling. [facility] Medical History Autoimmune thyroiditis B12 deficiency Chronic leukopenia Hyponatremia Hypothyroidism Left shoulder pain Macrocytosis Migraines Multiple allergies Nausea Physical exam Right hip pain Right sided sciatica Surgical History History of cholecystectomy History of foot surgery Tubal ligation status Family History Mother Lung cancer Hypercholesteremia Father No problems noted. 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 Extreme tenderness to palpation. Patient is extremely hesitant to perform any toe or ankle ROM. She is slightly able to wriggle her toes. Slightly able to perform ankle dorsiflexion and plantarflexion. Sensation intact. Pedal pulse intact. Psych Mental Status: mental status grossly normal Assessment & Plan Assessment & Plan (1) Fracture of fifth metatarsal bone of right foot: Code(s): S92.351A - Displaced fracture of fifth metatarsal bone, right foot, initial encounter for closed fracture Plan Ms. Dotson is a 57-year-old female who presents in the office today for an evaluation of right foot pain. The patient presented to the ED on 06/02/2023 status post stubbing her right foot at the bottom of her bed. X-rays of the right foot were obtained. The 5th toe was reduced and collin taped. She reports the pinky toe has a throbbing pain and is cold to the touch. She denies numbness or tingling. The patient will remain in the shoe she came to the office with. She will be given an out of work note stating she will remain out of work until her follow up. Follow up will be in 4 weeks, or sooner if needed. X-rays of the right foot, obtained on 06/02/2023, revealed: 1. Expansile lesion proximal end proximal phalanx fifth digit with pathological fracture suspected. Recommend MRI with and without contrast. 2. There is partial amputation distal fifth metatarsal.. 3. Rest of the right foot is unremarkable Patient Instructions: Scribed for Adriane Carbone PA-C by Nadia Mahajan medical insurance verifier, on 06/07/2023 at 12:27 pm, EST. Your attestation Coding Level of Care Code Est Pt Level 3 (06238) Diagnoses Fracture of fifth metatarsal bone of right foot J08.102L
== END 2023-06-07 13:24 | disposition home or self-care (01) ==
PROVIDERS: PCP Internal Medicine; Visit Provider Physician Assistant
DX: S92.351A Displaced fracture of fifth metatarsal bone, right foot, initial encounter for closed fracture (principal)
CPT/HCPCS: 99213

== ENCOUNTER → 2023-06-07 12:22 | Outpatient (BNVA) | payer OTHER, SELFPAY | PROVIDERS: PCP Internal Medicine; Visit Provider Physician Assistant | DX: S92.351A Displaced fracture of fifth metatarsal bone, right foot, initial encounter for closed fracture (principal); W22.03XA Walked into furniture, initial encounter; Y93.01 Activity, walking, marching and hiking; Y92.003 Bedroom of unspecified non-institutional (private) residence as the place of occurrence of the external cause; Y99.9 Unspecified external cause status | CPT/HCPCS: 99212 ==

== ENCOUNTER 2023-07-07 05:12 | Outpatient (REF) | payer OTHER, SELFPAY ==
--- NOTE | ~2023-07-07 | XR_ITS ---
EXAMINATION: XR FOOT, RIGHT CLINICAL INFORMATION: Pain. COMPARISON: Radiographs dated 06/02/2023. TECHNIQUE: AP, lateral, and oblique views of the right foot. FINDINGS: Bony alignment and mineralization are normal., The right fifth metatarsal head is absent, possibly surgically resected. There is a stable apex medial angulated transverse fracture of the proximal shaft of the fifth proximal phalanx. There is mild osteoarthritic change of the first metatarsophalangeal joint. No dislocation or ankle joint effusion is seen. Boehler's angle is normal. There is no calcaneal spur. There is no focal soft tissue swelling, gas or foreign body. XR/XR foot RT min 3V IMPRESSION: Again, there appears to have been a prior amputation of the head of the fifth metatarsal bone. A transverse, angular fracture is redemonstrated of the proximal shaft of the fifth proximal phalanx. There is no significant new callus formation noted.
== END 2023-07-07 05:13 | disposition home or self-care (01) ==
LOC: HO.HOSX 05:12
PROVIDERS: Visit Provider Physician Assistant
DX: M79.671 Pain in right foot (principal)
CPT/HCPCS: 73630; 99212

== ENCOUNTER 2023-07-07 09:18 | Outpatient (AMB) | payer OTHER, SELFPAY ==
--- NOTE | 2023-07-07 09:34 | A.OFFVIS_ITS ---
Intake Vital Signs 07/07/23 09:37 Height 5 ft 3 in Weight 110 lb BMI 19.5 Intake Visit Reasons: OV- 5th distal metatarsal fracture Intake Note: Belen is a 57 year old female who presents today for a follow up appointment for her right pinky toe fx, DOI 06/02/23. Patient states that her pinky toe is bent and her other toes get swollen which makes it hard for her to move the rest of the toes. She states that it is feeling a little better. Denies numbness but having tingling on the top of the foot. Allergies erythromycin base [ERYTHROMYCIN BASE] Allergy (Intermediate, Verified 07/07/23 09:37) HIVES gluten [GLUTEN] Allergy (Intermediate, Verified 07/07/23 09:37) tongue swells, tingling peanut Allergy (Intermediate, Verified 07/07/23 09:37) TONGUE SWELLS soy [SOY] Allergy (Intermediate, Verified 07/07/23 09:37) tongue swells HPI OV- 5th distal metatarsal fracture HPI Details 57-year-old female who presents in the office today for a follow up of a right 5th metatarsal fracture, which occurred on 06/02/2023 status post stubbing her right foot at the bottom of her bed. The patient reports her pinky toe is bent. She also reports edema in all the toes which makes it hard for her to move the digits. She claims it is feeling a little better. She denies numbness, but has tingling on the top of her right foot. [facility] Medical History Autoimmune thyroiditis B12 deficiency Chronic leukopenia Hyponatremia Hypothyroidism Left shoulder pain Macrocytosis Migraines Multiple allergies Nausea Physical exam Right hip pain Right sided sciatica Surgical History History of cholecystectomy History of foot surgery Tubal ligation status Family History Mother Lung cancer Hypercholesteremia Father No problems noted. 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 Current occupational exposures/hazards: No Cognitive needs: No Hearing needs: No Vision needs: No Review of Systems Const All systems reviewed & are unremarkable except as noted in HPI and below Physical Exam Vital Signs: BMI result Body Mass Index 19.5 Const General: cooperative, healthy appearing and no acute distress Resp Effort & Inspection: normal respiratory effort and able to speak in complete sentences Cardio Rate: regular rate Peripheral pulses: Peripheral pulses 2+ throughout GI Palpation (GI): Soft to palpation Skin Lesions: no lesions Rashes: no rashes Extrem Other: Right foot: Ecchymosis located on the dorsal and plantar aspect over the 5th metatarsal head. Slikght tenderness to palpation. Patient is extremely hesitant to perform any toe or ankle ROM. She is slightly able to wriggle her toes. Slightly able to perform ankle dorsiflexion and plantarflexion. Sensation intact. Pedal pulse intact. Assessment & Plan Assessment & Plan (1) Fracture of fifth metatarsal bone of right foot: Code(s): S92.351A - Displaced fracture of fifth metatarsal bone, right foot, initial encounter for closed fracture Plan Ms. Dotson is a 57-year-old female who presents in the office today for a follow up of a right 5th metatarsal fracture, which occurred on 06/02/2023 status post stubbing her right foot at the bottom of her bed. The patient reports her pinky toe is bent. She also reports edema in all the toes which makes it hard for her to move the digits. She claims it is feeling a little better. She denies numbness, but has tingling on the top of her right foot. The patient may continue to wear the post-op shoe for an additional 2 weeks for comfort. I encouraged her to wean out of the post-op shoe into a supportive street shoe. She may return to work with the following restrictions; request a chair or stool at the [employer] to allow for rest and minimal weight bearing for the next 2 weeks. She will remain in the post-op shoe for 2 weeks while at work. 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 Follow up will be PRN, or sooner if needed. X-rays of the right foot which were obtained while in the office today and were reviewed by me, Adriane Carbone PA-C, revealed routine healing of a right 5th metatarsal fracture. Orders: Orders XR foot RT min 3V Today M79.673 - Pain in unspecified foot Patient Instructions: Scribed for Adriane Carbone PA-C by Nadia Mahajan medical orderly, on 07/07/2023 at 9:20 am, EST. Coding Level of Care Code Global (85243) Diagnoses Fracture of fifth metatarsal bone of right foot S92.351A
[2023-07-07 09:37] VITALS: BMI 19.5
== END 2023-07-07 10:15 | disposition home or self-care (01) ==
PROVIDERS: PCP Internal Medicine; Visit Provider Physician Assistant
DX: S92.351A Displaced fracture of fifth metatarsal bone, right foot, initial encounter for closed fracture (principal)
CPT/HCPCS: 99213

== ENCOUNTER 2023-09-07 07:09 | Outpatient (REF) | payer OTHER, SELFPAY | END 2023-09-07 07:10 | disposition home or self-care (01) | LOC: HO.HMGCLDS 07:09 | PROVIDERS: PCP Internal Medicine; Visit Provider Internal Medicine | DX: E06.3 Autoimmune thyroiditis (principal) | CPT/HCPCS: 36415; 84443 ==

== ENCOUNTER 2023-09-21 09:49 | Outpatient (AMB) | payer OTHER, SELFPAY ==
[2023-09-21 09:52] VITALS: BP 112/76; PULSE 81; O2SAT 100; BMI 19.1
--- NOTE | 2023-09-21 09:52 | A.OFFPC_ITS ---
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: No Accompanied by: Self / Same As Patient Allergies erythromycin base [ERYTHROMYCIN BASE] Allergy (Intermediate, Verified 09/21/23 09:59) HIVES gluten [GLUTEN] Allergy (Intermediate, Verified 09/21/23 09:59) tongue swells, tingling peanut Allergy (Intermediate, Verified 09/21/23 09:59) TONGUE SWELLS soy [SOY] Allergy (Intermediate, Verified 09/21/23 09:59) tongue swells Medication List - Last Reconciled 09/21/23 by Naomi Ames MD acetaminophen (Tylenol Extra Strength) 1,000 mg PO Q6H PRN cetirizine (Zyrtec) 10 mg PO DAILY 90 days ibuprofen 600 mg PO Q8H PRN Synthroid (levothyroxine) 88 mcg PO DAILY 90 days NS tizanidine 2 mg PO TID 30 days Tobacco use date assessed: 09/21/23 HPI HPI Comments History of Present Illness Details This is a 57-year-old female with autoimmune thyroiditis, multiple allergies and sacroiliitis that comes today for follow-up on her conditions. Last TSH is normal. She wants a new debt collection specialist referral for [place] since she has anxiety while driving. Needs to be in a place close to [facility]. She has sacroiliitis which was relieved by local injection by [facility] see pain management but now the pain is coming back and as per patient Dr. Gruber told her that she cannot receive more injections and she needs surgery. Patient declines surgery. Patient used to see [facility] but had a local reaction from a local injection. Had MRI done at [facility] showing diffuse disc bulge at L 4 L5 and disc bulge at L5-S1 with some asymmetry. The back pain is aggravated by activity and it radiates to the right leg associated with right leg numbness which it started to happen. She does not want to be referred to a surgeon and wants a place in [facility]. After talking to her I told her that my only option for pain management which was close was [facility] and she agreed on. For her lumbar disc herniation descending does relieve the pain and occasionally ibuprofen. [facility], [facility] Medical History (Updated 09/21/23 @ 10:26 by Naomi Ames MD) Autoimmune thyroiditis B12 deficiency Migraines Right sided sciatica Right hip pain Left shoulder pain Chronic leukopenia Physical exam Nausea Hyponatremia Macrocytosis Multiple allergies Hypothyroidism Surgical History Tubal ligation status History of cholecystectomy History of foot surgery Family History Mother Lung cancer Hypercholesteremia Father No problems noted. 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 1. Little interest or pleasure in doing things: not at all 2. Feeling down, depressed, or hopeless: not at all 3. Trouble falling or staying asleep, or sleeping too much: not at all 4. Feeling tired or having little energy: not at all 5. Poor appetite or overeating: not at all 6. Feeling bad about yourself - or that you are a failure or have let yourself or your family down: not at all 7. Trouble concentrating on things, such as reading the newspaper or watching television: not at all 8. Moving or speaking so slowly that other people could have noticed. Or the opposite - being so fidgety or restless that you have been moving around a lot more than usual: not at all 9. Thoughts that you would be better off or of hurting yourself in some way: not at all Total score: 0 Depression Screening Interpretation: Negative Depression Screening Done: Yes 94508 - PHQ-9 Billing: Yes Source: Developed by Drs. German Virk, Katerine Roach, Job Ohara and colleagues, with an educational ric from [employer]. Thrive Questionnaire Date Thrive assessed: 03/09/23 AUDIT C Alcohol Use Questionnaire (AUDIT-C) 1. How often do you have a drink containing alcohol?: Never Total Score: 0 JIM-7 AMB Questionnaire JIM-7 Date JIM - 7 assessed: 03/09/23 Feeling nervous, anxious, or on edge: 0 = Not at all Not being able to stop or control worryin = Not at all Worrying too much about different things: 0 = Not at all Trouble relaxin = Not at all Being so restless that it is hard to sit still: 0 = Not at all Becoming easily annoyed or irritable: 0 = Not at all Feeling afraid as if something awful might happen: 0 = Not at all Total JIM-7 score (0-4 normal; 5-9 mild; 10-14 moderate; 15-21 severe): 0 Source: Developed by Drs. German Virk, Katerine Roach, Job Ohara and colleagues, with an educational ric from [employer]. JIM-7 Assessment Billing JIM-7 Assessment Tool: JIM-7 Assessment 82370 Review of Systems Const All systems reviewed & are unremarkable except as noted in HPI and below Eyes Reports no additional complaints, Denies change in vision and Denies other visual disturbances Card Denies chest pain at rest, Denies chest pain with activity, Denies edema, Denies irregular heart rhythm, Denies claudication, Denies dyspnea, Denies dyspnea on exertion, Denies orthopnea, Denies paroxysmal nocturnal dyspnea and Denies slow heart rate Resp Denies cough, Denies dyspnea and Denies dyspnea on exertion GI Denies abdominal pain, Denies change in bowel habits, Denies excessive flatus, Denies nausea and Denies vomiting Denies urinary incontinence, Denies urinary hesitancy and Denies urinary urgency Musc Denies abnormal gait, Denies atrophy, Denies deformity and Denies limited range of motion Skin/Breast Denies bleeding lesions, Denies changing lesions and Denies rash Neuro Denies abnormal gait and Denies lack of coordination Physical exam (Primary Care) Vital Signs: Last Vital Signs Pulse 81 09/21/23 09:52 BP 112/76 09/21/23 09:52 Pulse Ox 100 09/21/23 09:52 Oxygen Delivery Method Room Air 09/21/23 09:52 BMI result Body Mass Index 19.1 Tobacco/Smoking Status: Tobacco use Status Tobacco use date assessed 09/21/23 09/21/23 09:57 Patient Tobacco Use Status Former Tobacco user 09/21/23 09:57 Tobacco use type Cigarette 09/21/23 09:57 e-Cigarette/Vaping Use Never Used 09/21/23 09:57 PHQ-9: PHQ-9 Score PHQ-9: Total score 0 09/21/23 10:02 Depression Screening Interpretation: Negative Thrive Assessment: Date of Thrive Assessment Date Thrive assessed 03/09/23 09/21/23 09:57 Eyes General: appearance normal, both eyes and all related structures Eyelids: Yes eyelids normal Conjunctivae: conjunctivae normal Neck Neck: Yes normal visual inspection and Yes supple Resp Effort & Inspection: normal respiratory effort Auscultation: clear to auscultation bilaterally Cardio Jugular venous distension: no JVD Rate: regular rate Rhythm: regular rhythm Heart sounds: S1 normal heart sound present and S2 normal heart sound present Extrem General: Yes full ROM Assessment and Plan Assessment & Plan (1) Autoimmune thyroiditis: Code(s): E06.3 - Autoimmune thyroiditis Plan: Continue levothyroxine. (2) Sacroiliitis: Code(s): M46.1 - Sacroiliitis, not elsewhere classified Plan: Referred to [facility] pain management. (3) Multiple allergies: Code(s): Z88.9 - Allergy status to unspecified drugs, medicaments and biological substances Plan: Referred to ENT. (4) Lumbar disc herniation: Code(s): M51.26 - Other intervertebral disc displacement, lumbar region Plan: Continue ibuprofen and tizanidine as needed. Orders: Referrals Ear/Nose/Throat Referral Z88.9 - Allergy status to unspecified drugs, medicaments and biological substances Pain Management Referral M46.1 - Sacroiliitis, not elsewhere classified, M51.26 - Other intervertebral disc displacement, lumbar region Coding Level of Care Code Est Pt Level 4 (53289) Diagnoses Autoimmune thyroiditis E06.3 Sacroiliitis M46.1 Multiple allergies Z88.9 Lumbar disc herniation M51.26 Additional Codes JIM-7 Assessment Billing - JIM-7 Assessment Tool: JIM-7 Assessment 10902 ([id number]) Time Spent (min) 22
== END 2023-09-21 10:31 | disposition home or self-care (01) ==
PROVIDERS: Visit Provider Internal Medicine
DX: E06.3 Autoimmune thyroiditis (principal); M46.1 Sacroiliitis, not elsewhere classified; Z88.9 Allergy status to unspecified drugs, medicaments and biological substances; M51.26 Other intervertebral disc displacement, lumbar region
CPT/HCPCS: 99214

== ENCOUNTER 2024-01-18 07:39 | Outpatient (REF) | payer OTHER, SELFPAY | END 2024-01-18 07:40 | disposition home or self-care (01) | LOC: HO.MAMMO 07:39 | PROVIDERS: PCP Internal Medicine; Visit Provider Internal Medicine | DX: Z12.31 Encounter for screening mammogram for malignant neoplasm of breast (principal) | CPT/HCPCS: 77063; 77067 ==

== ENCOUNTER → 2024-01-18 07:45 | Outpatient (BNV) | payer OTHER, SELFPAY | PROVIDERS: PCP Internal Medicine; Visit Provider Radiology Diagnostic Radiology | DX: Z12.31 Encounter for screening mammogram for malignant neoplasm of breast (principal) | CPT/HCPCS: 77063; 77067 ==

== ENCOUNTER 2024-03-14 10:00 | Outpatient (AMB) | payer OTHER, SELFPAY ==
[2024-03-14 10:05] VITALS: BP 110/68; BMI 19.3
--- NOTE | 2024-03-14 10:05 | A.OFFPC_ITS ---
Vital Signs 03/14/24 10:05 Height 5 ft 3 in Weight 109 lb BMI 19.3 BP 110/68 Blood Pressure Location Lt brachial Position Sitting Intake Visit Reasons: Annual Exam Intake Note: Patient here for a physical exam Stepdown Nurse Required: No Accompanied by: Self / Same As Patient Allergies erythromycin base [ERYTHROMYCIN BASE] Allergy (Intermediate, Verified 03/14/24 10:17) HIVES gluten [GLUTEN] Allergy (Intermediate, Verified 03/14/24 10:17) tongue swells, tingling peanut Allergy (Intermediate, Verified 03/14/24 10:17) TONGUE SWELLS soy [SOY] Allergy (Intermediate, Verified 03/14/24 10:17) tongue swells Medication List - Last Reconciled 03/14/24 by Naomi Ames MD cetirizine (Zyrtec) 10 mg PO DAILY 90 days ibuprofen 600 mg PO Q8H PRN Synthroid (levothyroxine) 88 mcg PO DAILY 90 days NS Tobacco use date assessed: 03/14/24 Dental Screening Dental Screen Date: 03/14/24 Did you have a dental visit in the last 12 months?: Yes Did you have a dental problem in the last 6 months where you did not have access to dental care?: No Was dental information given to patient?: Patient has dentist HPI HPI Comments History of Present Illness Details This is a 58-year-old female with sacroiliitis that comes for her physical exam. Mammogram done January 2024 was normal. Last Pap smear was over 4 years ago as per patient. Declines colonoscopy, fit test and Cologuard due to not specific reason. Sacroiliitis has worsened and she follows with [facility]. Low back pain radiates to her right leg and has received physical therapy with no improvement. COUNTS INCLUDE 234 BEDS AT THE [facility] Medical History (Updated 03/14/24 @ 10:37 by Naomi Ames MD) Autoimmune thyroiditis B12 deficiency Migraines Right sided sciatica Right hip pain Left shoulder pain Chronic leukopenia Physical exam Nausea Hyponatremia Macrocytosis Multiple allergies Hypothyroidism Surgical History Tubal ligation status History of cholecystectomy History of foot surgery Family History Mother Lung cancer Hypercholesteremia Father No problems noted. 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 1. Little interest or pleasure in doing things: not at all 2. Feeling down, depressed, or hopeless: not at all 3. Trouble falling or staying asleep, or sleeping too much: not at all 4. Feeling tired or having little energy: not at all 5. Poor appetite or overeating: not at all 6. Feeling bad about yourself - or that you are a failure or have let yourself or your family down: not at all 7. Trouble concentrating on things, such as reading the newspaper or watching television: not at all 8. Moving or speaking so slowly that other people could have noticed. Or the opposite - being so fidgety or restless that you have been moving around a lot more than usual: not at all 9. Thoughts that you would be better off or of hurting yourself in some way: not at all Total score: 0 Depression Screening Interpretation: Negative Depression Screening Done: Yes 36963 - PHQ-9 Billing: Yes Source: Developed by Drs. German Virk, Katerine Roach, Job Ohara and colleagues, with an educational ric from [employer]. Thrive Questionnaire Date Thrive assessed: 03/14/24 I am a: Patient What is your living situation today?: I have a steady place to live Within the past 12 months, did the food you bought not last and you didn't have the money to get more?: Never true Within the past 12 months, did you worry whether your food would run out before you got money to buy more?: Never true Do you have trouble paying for medicines?: No Do you have trouble getting transportation to medical appointments?: No Do you have trouble paying your heating and electricity bill?: No Do you have trouble taking care of your child, family member or friend?: No Do you have trouble with day-to-day activities such as bathing, preparing meals, shopping, managing finances, etc.?: No Are you currently unemployed and looking for a job?: No Are you interested in more education?: No Please select the resources that you would like help with: None Currently or been in a relationship where the following occur: no concerns reported THRIVE Score: 0 AUDIT C Alcohol Use Questionnaire (AUDIT-C) 1. How often do you have a drink containing alcohol?: Never Total Score: 0 Score Reviewed/Action Taken: No JIM-7 AMB Questionnaire JIM-7 Date JIM - 7 assessed: 03/14/24 Feeling nervous, anxious, or on edge: 0 = Not at all Not being able to stop or control worryin = Not at all Worrying too much about different things: 0 = Not at all Trouble relaxin = Not at all Being so restless that it is hard to sit still: 0 = Not at all Becoming easily annoyed or irritable: 0 = Not at all Feeling afraid as if something awful might happen: 0 = Not at all Total JIM-7 score (0-4 normal; 5-9 mild; 10-14 moderate; 15-21 severe): 0 Source: Developed by Drs. German Virk, Katerine Roach, Job Ohara and colleagues, with an educational ric from [employer]. JIM-7 Assessment Billing JIM-7 Assessment Tool: JIM-7 Assessment 67912 Review of Systems Const All systems reviewed & are unremarkable except as noted in HPI and below Eyes Reports no additional complaints, Denies change in vision and Denies other visual disturbances Card Denies chest pain at rest, Denies chest pain with activity, Denies edema, Denies irregular heart rhythm, Denies claudication, Denies dyspnea, Denies dyspnea on exertion, Denies orthopnea, Denies paroxysmal nocturnal dyspnea and Denies slow heart rate Resp Denies cough, Denies dyspnea and Denies dyspnea on exertion GI Denies abdominal pain, Denies change in bowel habits, Denies excessive flatus, Denies nausea and Denies vomiting Denies urinary incontinence, Denies urinary hesitancy and Denies urinary urgency Physical exam (Primary Care) Vital Signs: Last Vital Signs BP 110/68 03/14/24 10:05 BMI result Body Mass Index 19.3 Tobacco/Smoking Status: Tobacco use Status Tobacco use date assessed 03/14/24 03/14/24 10:12 Patient Tobacco Use Status Former Tobacco user 03/14/24 10:12 Tobacco use type Cigarette 03/14/24 10:12 e-Cigarette/Vaping Use Never Used 03/14/24 10:12 PHQ-9: PHQ-9 Score PHQ-9: Total score 0 03/14/24 10:19 Depression Screening Interpretation: Negative Thrive Assessment: Date of Thrive Assessment Date Thrive assessed 03/14/24 03/14/24 10:12 Currently or been in a relationship where the following occur: no concerns reported Const Orientation/consciousness: patient oriented x3 HENMT Head: Yes normal to inspection, Yes normocephalic and Yes atraumatic Ears: external ears normal Eyes General: appearance normal, both eyes and all related structures Eyelids: Yes eyelids normal Conjunctivae: conjunctivae normal Neck Neck: Yes normal visual inspection and Yes supple Resp Effort & Inspection: normal respiratory effort Auscultation: clear to auscultation bilaterally Cardio Jugular venous distension: no JVD Rate: regular rate Rhythm: regular rhythm Heart sounds: S1 normal heart sound present and S2 normal heart sound present GI Inspection: Yes normal to inspection Palpation (GI): Soft to palpation and nontender Auscultation: normal bowel sounds Skin General skin exam: no rashes or lesions noted Neuro General: patient oriented x3 and no focal motor deficits Extrem General: Yes full ROM Psych Appearance: grossly normal Assessment and Plan Assessment & Plan (1) Physical exam: Code(s): Z00.00 - Encounter for general adult medical examination without abnormal findings Plan: Repeat in a year. (2) Sacroiliitis: Code(s): M46.1 - Sacroiliitis, not elsewhere classified Plan: Follow by [facility]. Orders: Orders Lipid Panel Today E78.5 - Hyperlipidemia, unspecified Thyroid Stimulating Hormone Today E06.3 - Autoimmune thyroiditis Complete Blood Count Auto Diff Today D72.819 - Decreased white blood cell count, unspecified Vitamin B12 and Folate Today E53.8 - Deficiency of other specified B group vitamins Comprehensive [place]. 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
== END 2024-03-14 10:35 | disposition home or self-care (01) ==
PROVIDERS: Visit Provider Internal Medicine
DX: Z00.00 Encounter for general adult medical examination without abnormal findings (principal); M46.1 Sacroiliitis, not elsewhere classified
CPT/HCPCS: 99396

== ENCOUNTER 2024-06-13 08:47 | Outpatient (AMB) | payer OTHER, SELFPAY ==
--- NOTE | 2024-06-13 08:51 | A.OFFVIS_ITS ---
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 She is doing well with no concerns. Attempting to eat a healthy diet with calcium and vitamin D, she walks when possible. Currently not sexually active x17yrs. Denies any vaginal dryness or irritation. STI testing offered; she declines. Last pap smear; many years ago. Last mammogram; 2023. Colonoscopy is not UTD. Denies any family history of breast, ovarian or colon cancer. [facility] Medical History (Updated 06/13/24 @ 09:57 by Xochilt Rivera CNM) Polyp at cervical os Autoimmune thyroiditis B12 deficiency Migraines Right sided sciatica Right hip pain Left shoulder pain Chronic leukopenia Physical exam Nausea Hyponatremia Macrocytosis Multiple allergies Hypothyroidism Surgical History (Updated 06/13/24 @ 08:57 by EBONIE Coffey) Tubal ligation status History of cholecystectomy History of foot surgery Family History Mother Lung cancer Hypercholesteremia Father No problems noted. 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 Current occupational exposures/hazards: No Cognitive needs: No Hearing needs: No Vision needs: No Female Reproductive History Menstrual control method: permanent sterilization Permanent Sterilization: BTL Age of menopause: 43 Total pregnancies: 5 Full term: 4 Number of Living Children: 4 Ab spontaneous: 1 History of abnormal pap smear: No Date of Mammogram: 01/18/24 (Birad 1) Review of Systems Const All systems reviewed & are unremarkable except as noted in HPI and below Reports as per HPI Eyes Reports no additional complaints ENT Reports no additional complaints Card Reports no additional complaints Resp Reports no additional complaints GI Reports as per HPI and Reports no additional complaints Reports as per HPI Musc Reports no additional complaints Skin/Breast Reports as per HPI Neuro Reports no additional complaints Psych Reports no additional complaints Endo Reports no additional complaints Nolan/Lymph Reports no additional complaints Aller/Immun Reports no additional complaints Physical Exam Vital Signs: Last Vital Signs BP 100/66 06/13/24 08:52 BMI result Body Mass Index 19.1 Const General: cooperative, healthy appearing, no acute distress, well developed and alert Orientation/consciousness: patient oriented x3 HEENT Head: Yes normal to inspection Eyes General: appearance normal, both eyes and all related structures Neck Neck: Yes normal visual inspection Thyroid: Thyroid normal Chest Chest palpation & inspection: normal inspection of the chest and other (no puckering, dimpling, peau de orange, retraction, discharge, masses) Breast/axilla inspection: normal inspection of the breasts Breast/axilla palpation: normal palpation of the breasts Resp Effort & Inspection: normal respiratory effort GI Inspection: Yes normal to inspection and Yes scar Palpation (GI): Soft to palpation Rectal Exam - Female: deferred General: Yes bladder normal to palpation External Female Exam: normal external appearance and normal appearance of the urethra Speculum Exam - Vagina: normal appearance of the vagina, normal palpation, normal vaginal discharge and vagina atrophic Speculum Exam - Cervix: normal appearance of the cervix, normal palpation and Cervical os closed (2 polyps, 3 and 9:00) Bimanual exam- vagina & uterus: normal bimanual exam, normal palpation, uterine size normal, bladder normal to palpation, normal palpation and non-tender Bimanual Exam- Adnexa, other: no masses Skin General skin exam: no rashes or lesions noted Rashes: no rashes Neuro General: patient oriented x3 Cognition (Neuro): normal cognition Extrem General: Yes normal to inspection Psych Attitude: cooperative Thought process: Normal thought process present Assessment & Plan Assessment & Plan (1) Encounter for well woman exam with routine gynecological exam: Code(s): Z01.419 - Encounter for gynecological examination (general) (routine) without abnormal findings Category: Medical (2) Cervical polyp: Code(s): N84.1 - Polyp of cervix uteri Plan Discussed: Current recommendations for pap smears per ASCCP guidelines. Breast awareness, periodic self breast exams and yearly mammogram. Maintain a healthy lifestyle, well balanced diet including Calcium 1,200 mg and Vitamin D 600 IU daily, and routine exercise. Cervical polpy findings, to schedule polypectomy removal. Contact the office with any postmenopausal bleeding. Patient verbalizes understanding and agrees to the plan of care. She was given opportunity to ask questions and all questions were answered to the best of my ability. RTO in 1 year for annual cyber defense analyst exam. This note is constructed using voice recognition software. While every effort has been made to ensure accuracy, dental equipment mechanic errors may have been included. Orders: Orders PAP + HPV E6/E7 rfx 18/45 Today Z01.419 - Encounter for gynecological examination (general) (routine) without abnormal findings Coding Level of Care Code New Pt Prev Care 40-64y(45365) Diagnoses Encounter for well woman exam with routine gynecological exam Z01.419 Cervical polyp N84.1
[2024-06-13 08:52] VITALS: BP 100/66; BMI 19.1
== END 2024-06-13 09:40 | disposition home or self-care (01) ==
PROVIDERS: PCP Internal Medicine; Visit Provider Advanced Practice Midwife
DX: Z01.419 Encounter for gynecological examination (general) (routine) without abnormal findings (principal); N84.1 Polyp of cervix uteri
CPT/HCPCS: 99386

== ENCOUNTER 2024-06-13 08:47 | Outpatient (REF) | payer OTHER, SELFPAY ==
[2024-06-15 15:33] LABS: HPV mRNA E6/E7 Not Detected (Not Detected)
== END 2024-06-13 08:48 | disposition home or self-care (01) ==
LOC: HO.LNP 08:47
PROVIDERS: PCP Internal Medicine; Visit Provider Advanced Practice Midwife
DX: Z01.419 Encounter for gynecological examination (general) (routine) without abnormal findings (principal); Z11.51 Encounter for screening for human papillomavirus (HPV)
CPT/HCPCS: 87624; 88175; 99386

== ENCOUNTER 2024-07-10 12:36 | Outpatient (AMB) | payer OTHER, SELFPAY ==
[2024-07-10 12:46] VITALS: BP 102/60; PULSE 78; O2SAT 98; BMI 19.3
--- NOTE | 2024-07-10 12:46 | MHC.PC.OV ---
Vital Signs 07/10/24 12:46 Height 5 ft 3 in Weight 109 lb BMI 19.3 BP 102/60 Blood Pressure Location Lt brachial Position Sitting Pulse 78 Pulse Source Pulse Oximeter Pulse Oximetry (%) 98 Oxygen Delivery Method Room Air Intake Visit Reasons: having lower back and left arm pain Biosolids Management Technician Required: No Accompanied by: Self / Same As Patient Allergies erythromycin base [ERYTHROMYCIN BASE] Allergy (Intermediate, Verified 07/10/24 12:58) HIVES gluten [GLUTEN] Allergy (Intermediate, Verified 07/10/24 12:58) tongue swells, tingling peanut Allergy (Intermediate, Verified 07/10/24 12:58) TONGUE SWELLS soy [SOY] Allergy (Intermediate, Verified 07/10/24 12:58) tongue swells Medication List - Last Reconciled 07/10/24 by Naomi Ames MD celecoxib (Celebrex) 100 mg PO DAILY cetirizine (Zyrtec) 10 mg PO DAILY 90 days gabapentin 100 mg PO BID gabapentin mg PO BEDTIME ibuprofen 600 mg PO Q8H PRN Synthroid (levothyroxine) 88 mcg PO DAILY 90 days NS Tobacco use date assessed: 07/10/24 Dental Screening Dental Screen Date: 07/10/24 Did you have a dental visit in the last 12 months?: Yes Did you have a dental problem in the last 6 months where you did not have access to dental care?: No Was dental information given to patient?: Patient has dentist HPI HPI Comments History of Present Illness Details This is a 58-year-old female with hypothyroidism and lumbar disc herniation that complains of neck pain radiating to the left shoulder and arm that started few weeks ago. The pain is aggravated by activity. 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 Not able to lift over 10 lb. Restrictionsns at work were fill out with the patient and give it to her. No numbness or tingling in arm. TSH normal today. Lumbar disc herniation has been evaluated by Orthopedic surgery and has been well controlled with Celebrex and gabapentin. Chest pain or shortness on breath. [facility] Medical History (Updated 07/10/24 @ 13:19 by Naomi Ames MD) Polyp at cervical os Autoimmune thyroiditis B12 deficiency Migraines Right sided sciatica Right hip pain Left shoulder pain Chronic leukopenia Physical exam Nausea Hyponatremia Macrocytosis Multiple allergies Hypothyroidism Surgical History Tubal ligation status History of cholecystectomy History of foot surgery Family History Mother Lung cancer Hypercholesteremia Father No problems noted. 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 1. Little interest or pleasure in doing things: not at all 2. Feeling down, depressed, or hopeless: not at all 3. Trouble falling or staying asleep, or sleeping too much: not at all 4. Feeling tired or having little energy: not at all 5. Poor appetite or overeating: not at all 6. Feeling bad about yourself - or that you are a failure or have let yourself or your family down: not at all 7. Trouble concentrating on things, such as reading the newspaper or watching television: not at all 8. Moving or speaking so slowly that other people could have noticed. Or the opposite - being so fidgety or restless that you have been moving around a lot more than usual: not at all 9. Thoughts that you would be better off or of hurting yourself in some way: not at all Total score: 0 Depression Screening Interpretation: Negative Depression Screening Done: Yes 13595 - PHQ-9 Billing: Yes Source: Developed by Drs. German Virk, Katerine Roach, Job Ohara and colleagues, with an educational ric from [employer]. Thrive Questionnaire Date Thrive assessed: 07/10/24 I am a: Patient What is your living situation today?: I have a steady place to live Within the past 12 months, did the food you bought not last and you didn't have the money to get more?: Never true Within the past 12 months, did you worry whether your food would run out before you got money to buy more?: Never true Do you have trouble paying for medicines?: No Do you have trouble getting transportation to medical appointments?: No Do you have trouble paying your heating and electricity bill?: No Do you have trouble taking care of your child, family member or friend?: No Do you have trouble with day-to-day activities such as bathing, preparing meals, shopping, managing finances, etc.?: No Are you currently unemployed and looking for a job?: No Are you interested in more education?: No Please select the resources that you would like help with: None Currently or been in a relationship where the following occur: No concerns reported THRIVE Score: 0 AUDIT C Alcohol Use Questionnaire (AUDIT-C) 1. How often do you have a drink containing alcohol?: Never Total Score: 0 Score Reviewed/Action Taken: No JIM-7 AMB Questionnaire JIM-7 Date JIM - 7 assessed: 07/10/24 Feeling nervous, anxious, or on edge: 0 = Not at all Not being able to stop or control worryin = Not at all Worrying too much about different things: 0 = Not at all Trouble relaxin = Not at all Being so restless that it is hard to sit still: 0 = Not at all Becoming easily annoyed or irritable: 0 = Not at all Feeling afraid as if something awful might happen: 0 = Not at all Total JIM-7 score (0-4 normal; 5-9 mild; 10-14 moderate; 15-21 severe): 0 Source: Developed by Drs. German Virk, Katerine Roach, Job Ohara and colleagues, with an educational ric from [employer]. JIM-7 Assessment Billing JIM-7 Assessment Tool: JIM-7 Assessment 08376 Review of Systems Const All systems reviewed & are unremarkable except as noted in HPI and below Card Denies chest pain at rest, Denies chest pain with activity, Denies edema, Denies irregular heart rhythm, Denies claudication, Denies dyspnea, Denies dyspnea on exertion, Denies orthopnea, Denies paroxysmal nocturnal dyspnea and Denies slow heart rate Resp Denies cough, Denies dyspnea and Denies dyspnea on exertion GI Denies abdominal pain, Denies change in bowel habits, Denies excessive flatus, Denies nausea and Denies vomiting Physical exam (Primary Care) Vital Signs: Last Vital Signs Pulse 78 07/10/24 12:46 BP 102/60 07/10/24 12:46 Pulse Ox 98 07/10/24 12:46 Oxygen Delivery Method Room Air 07/10/24 12:46 BMI result Body Mass Index 19.3 Tobacco/Smoking Status: Tobacco use Status Tobacco use date assessed 07/10/24 07/10/24 12:51 Patient Tobacco Use Status Former Tobacco user 07/10/24 12:51 Tobacco use type Cigarette 07/10/24 12:51 e-Cigarette/Vaping Use Never Used 07/10/24 12:51 PHQ-9: PHQ-9 Score PHQ-9: Total score 0 07/10/24 15:00 Depression Screening Interpretation: Negative Thrive Assessment: Date of Thrive Assessment Date Thrive assessed 07/10/24 07/10/24 12:51 Currently or been in a relationship where the following occur: No concerns reported Resp Effort & Inspection: normal respiratory effort Auscultation: clear to auscultation bilaterally Cardio Jugular venous distension: no JVD Rate: regular rate Rhythm: regular rhythm Heart sounds: S1 normal heart sound present and S2 normal heart sound present Extrem General: Yes full ROM Assessment and Plan Assessment & Plan (1) Neck pain: Code(s): M54.2 - Cervicalgia Plan: X-ray ordered. (2) Left shoulder pain: Code(s): M25.512 - Pain in left shoulder Plan: X-ray ordered. (3) Lumbar disc herniation: Code(s): M51.26 - Other intervertebral disc displacement, lumbar region Plan: Continue gabapentin. (4) Hypothyroidism: Code(s): E03.9 - Hypothyroidism, unspecified Plan: Continue levothyroxine. Orders: Orders Thyroid Stimulating Hormone Today E03.9 - Hypothyroidism, unspecified XR shoulder LT min 2V Today M25.512 - Pain in left shoulder XR cervical spine 2V Today M54.2 - Cervicalgia Coding Level of Care Code Est Pt Level 4 (69837) Complex EM visit Add On G2211 Diagnoses Neck pain M54.2 Left shoulder pain M25.512 Lumbar disc herniation M51.26 Hypothyroidism E03.9 Additional Codes JIM-7 Assessment Billing - JIM-7 Assessment Tool: JIM-7 Assessment 27674 ([id number]) Time Spent (min) 21
== END 2024-07-10 13:17 | disposition home or self-care (01) ==
PROVIDERS: PCP Internal Medicine; Visit Provider Internal Medicine
DX: M54.2 Cervicalgia (principal); M25.512 Pain in left shoulder; M51.26 Other intervertebral disc displacement, lumbar region; E03.9 Hypothyroidism, unspecified
CPT/HCPCS: 99214; G2211

== ENCOUNTER 2024-07-10 13:25 | Outpatient (REF) | payer OTHER, SELFPAY ==
--- NOTE | ~2024-07-10 | XR_ITS ---
EXAMINATION: XR SHOULDER, LEFT CLINICAL INFORMATION: Pain in left shoulder COMPARISON: X-ray of the left shoulder March 2022 TECHNIQUE: AP external rotation, Grashey, scapular Y, and axillary views of the left shoulder. FINDINGS: The bones and soft tissues are normal. No fracture. Glenohumeral and acromioclavicular alignment is anatomic with normal joint space. No abnormal soft tissue calcifications. XR/XR shoulder LT min 2V IMPRESSION: Normal left shoulder. Electronically signed by: David Moulton MD 07/31/2024 07:18 AM EDT
--- NOTE | ~2024-07-10 | XR_ITS ---
EXAMINATION: XR CERVICAL SPINE CLINICAL INFORMATION: Cervical spine pain COMPARISON: None available. TECHNIQUE: 3 views of the cervical spine were obtained. FINDINGS: At C4-C5 there is mild degenerative disc changes with endplate osteophytes and slight anterolisthesis of C4 on C5. Remaining disc levels are normal. Vertebral bodies normal in height and otherwise normal alignment. Mild multilevel facet arthrosis noted. Surrounding bone and soft tissues are unremarkable. XR/XR cervical spine 2V IMPRESSION: Mild spondylosis of the cervical spine. Electronically signed by: David Moulton MD 07/31/2024 07:20 AM EDT
[2024-07-10 14:13] LABS: MANUAL DIFF FLAG NO
[2024-07-10 14:28] LABS: Basophils Percent Auto 0.5 % (0-2); Hematocrit 36.9 % (37.0-47.0); Hemoglobin 12.5 g/dl (12.0-16.0); Imm Gran Abs Auto 0.01 X10*3/uL (0.00-0.03); Imm Gran Pct Auto 0.3 % (0.0-0.4); Lymphocytes Absolute Auto 1.2 X10*3/uL (1.2-4.9); Lymphocytes Percent Auto 29.2 % (20-40); Mean Corpuscular HGB Conc 33.9 g/dl (31.0-35.0); Mean Corpuscular Hemoglobin 34.2 pg (27.0-33.0); Mean Corpuscular Volume 101.1 fL (80.0-98.0); Monocytes Absolute Auto 0.5 X10*3/uL (0.1-1.2); Monocytes Percent Auto 12.8 % (2-11); Neutrophils Absolute Auto 2.3 x10*3/uL (2.0-8.3); Neutrophils Percent Auto 57.2 % (45-73); Platelet Count 235 X10*3/uL (160-400); Red Blood Count 3.65 X10*6/uL (4.20-5.50); Red Cell Distribution Width 11.7 % (11.0-16.0)
[2024-07-10 15:15] LABS: Thyroid Stimulating Hormone 0.35 uIU/mL (0.32-4.0)
[2024-07-10 15:29] LABS: Folate 13.2 ng/mL (> or = 4.0); Vitamin B12 463 pg/mL (200-900)
== END 2024-07-10 13:26 | disposition home or self-care (01) ==
LOC: HO.LAB 13:25
PROVIDERS: PCP Internal Medicine; Visit Provider Internal Medicine
DX: M54.2 Cervicalgia (principal); M25.512 Pain in left shoulder; E53.8 Deficiency of other specified B group vitamins; D72.819 Decreased white blood cell count, unspecified; E06.3 Autoimmune thyroiditis
CPT/HCPCS: 36415; 72040; 73030; 82607; 82746; 84443; 85025

== ENCOUNTER 2024-08-09 10:09 | Outpatient (AMB) | payer OTHER, SELFPAY ==
[2024-08-09 10:40] VITALS: BP 102/64
--- NOTE | 2024-08-09 10:40 | MHC.OFFVIS ---
Vital Signs 08/09/24 10:40 BP 102/64 Intake Visit Reasons: Polypectomy Mash Tub Cooker: Mash Tub Cooker Present (Elen) Allergies erythromycin base [ERYTHROMYCIN BASE] Allergy (Intermediate, Verified 07/10/24 12:58) HIVES gluten [GLUTEN] Allergy (Intermediate, Verified 07/10/24 12:58) tongue swells, tingling peanut Allergy (Intermediate, Verified 07/10/24 12:58) TONGUE SWELLS soy [SOY] Allergy (Intermediate, Verified 07/10/24 12:58) tongue swells Is last menstrual period known: Yes HPI Comments Details: Patient is here today for a cervical polypectomy. Last Pap was May 2024-negative. [facility] Medical History Polyp at cervical os Autoimmune thyroiditis B12 deficiency Migraines Right sided sciatica Right hip pain Left shoulder pain Chronic leukopenia Physical exam Nausea Hyponatremia Macrocytosis Multiple allergies Hypothyroidism Surgical History Tubal ligation status History of cholecystectomy History of foot surgery Family History Mother Lung cancer Hypercholesteremia Father No problems noted. 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 Current occupational exposures/hazards: No Cognitive needs: No Hearing needs: No Vision needs: No Review of Systems Const All systems reviewed & are unremarkable except as noted in HPI and below Endo Reports no additional complaints Physical Exam Vital Signs: Last Vital Signs BP 102/64 08/09/24 10:40 Const General: cooperative, healthy appearing and no acute distress External Female Exam: normal external appearance Speculum Exam - Vagina: normal appearance of the vagina and vagina atrophic Speculum Exam - Cervix: Cervical mass present (Two polyps noted- larger 1 on right at 09:00, smaller at 03:00 ) fixed (Wide-based) Psych Appearance: well kempt Attitude: cooperative Thought process: Normal thought process present Office Procedures Cervical Polypectomy Details Details: Consent for Cervical Polypectomy procedure: The patient is here today for an Cervical Polypectomy. She was counseled regarding anticipatory guidance for the procedure including the risks for pain, infection, bleeding, perforation, potential injury to the tissues may include the cervix, vagina, uterus, tubes, bladder and bowels. These injuries may include further treatment and evaluation including surgery, blood transfusions, antibiotics, hospitalizations and anesthesia. Permanent injury and scarring can occur. She was consented for the procedure, and the consent forms were signed. She is agreeable to have the procedure today. All questions were answered. Polypectomy Procedure: The patient was placed in the dorsal lithotomy position and a sterile speculum inserted. Using aseptic technique for the procedure. The cervix was cleansed with Betadine x 3 swabs. Two polyps were identified one at 03:00 o'clock and the 2nd larger one at 9 o'clock. The polyp left sided polyp was not able to be grasped at the base and elevated, the right sided larger one also due to wide base and angle was not holding grasp with a ring or bosemen clamp, the patient admitted she did not have any tolerance to discomfort, and the procedure was discontinued. I offered her to have Dr. Henriquez step in today for removal and she declined any further procedure due to her intolerance of pain. I encouraged her to reconsider due to small risk of atypical cells with polyps, and to call the office to reschedule. Post Polypectomy Care: There may be some residual spotting due to attempt removal most likely minimal for a day or so, if any heavy or prolonged bleeding to report back to the office immediately. Report any future episodes of bleeding. Has follow up for annual exam scheduled. All of her questions and concerns were addressed to the best of my ability. This note is constructed using voice recognition software. While every effort has been made to ensure accuracy, sole leather cutting machine operator errors may have been included. CPT: 94296 - Cervical Polypectomy All charges added?: Additional procedure code (CPT) needed Assessment & Plan Assessment & Plan (1) Polyp at cervical os: Code(s): N84.1 - Polyp of cervix uteri Plan See procedure notes unable to successfully move polyps today. Patient declined future appointment at this time. This note is constructed using voice recognition software. While every effort has been made to ensure accuracy, sole leather cutting machine operator errors may have been included. Coding Level of Care Code Procedure Only Diagnoses Polyp at cervical os N84.1 CPT Codes Details - CPT: 74760 - Cervical Polypectomy ([id number]) Comment Attempted procedure was not completed ? billing code
== END 2024-08-10 07:45 | disposition home or self-care (01) ==
PROVIDERS: PCP Internal Medicine; Visit Provider Advanced Practice Midwife
DX: N84.1 Polyp of cervix uteri (principal)
CPT/HCPCS: 57500

== ENCOUNTER → 2024-08-09 10:09 | Outpatient (BNVA) | payer OTHER, SELFPAY | PROVIDERS: PCP Internal Medicine; Visit Provider Advanced Practice Midwife | DX: N84.1 Polyp of cervix uteri (principal) | CPT/HCPCS: 57500 ==

== ENCOUNTER 2025-01-23 07:39 | Outpatient (REF) | payer OTHER, SELFPAY | END 2025-01-23 07:40 | disposition home or self-care (01) | LOC: HO.MAMMO 07:39 | PROVIDERS: PCP Internal Medicine; Visit Provider Internal Medicine | DX: Z12.31 Encounter for screening mammogram for malignant neoplasm of breast (principal) | CPT/HCPCS: 77063; 77067 ==

== ENCOUNTER → 2025-01-23 07:45 | Outpatient (BNV) | payer OTHER, SELFPAY | PROVIDERS: PCP Internal Medicine; Visit Provider Internal Medicine | DX: Z12.31 Encounter for screening mammogram for malignant neoplasm of breast (principal) | CPT/HCPCS: 77063; 77067 ==

== ENCOUNTER 2025-03-28 08:56 | Outpatient (AMB) | payer OTHER, SELFPAY ==
--- NOTE | 2025-03-28 08:58 | MHC.PC.OV ---
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: No Accompanied by: Self / Same As Patient Allergies erythromycin base [ERYTHROMYCIN BASE] Allergy (Intermediate, Verified 03/28/25 09:15) HIVES gluten [GLUTEN] Allergy (Intermediate, Verified 03/28/25 09:15) tongue swells, tingling peanut Allergy (Intermediate, Verified 03/28/25 09:15) TONGUE SWELLS soy [SOY] Allergy (Intermediate, Verified 03/28/25 09:15) tongue swells Medication List - Last Reconciled 03/28/25 by Naomi Ames MD celecoxib (Celebrex) 100 mg PO DAILY 90 days cetirizine (Zyrtec) 10 mg PO DAILY 90 days gabapentin 300 mg PO BEDTIME 90 days gabapentin 100 mg PO BID 30 days ibuprofen 600 mg PO Q8H PRN Synthroid (levothyroxine) 88 mcg PO DAILY 90 days NS Tobacco use date assessed: 03/28/25 Dental Screening Dental Screen Date: 03/28/25 Did you have a dental visit in the last 12 months?: Yes Did you have a dental problem in the last 6 months where you did not have access to dental care?: No Was dental information given to patient?: Patient has dentist HPI HPI Comments History of Present Illness Details The patient is a 59-year-old female presenting for her annual physical examination. Noteworthy is her history of complications from bilateral tubal ligation in 1989 and resulting high-risk in 2002. She suffers from allergies to erythromycin, gluten, peanuts, and soy, and requires hypoallergenic bandages due to her adhesive allergy. Gluten ingestion causes her significant discomfort, including abdominal pain and diarrhea. Surgical history includes cholecystectomy and foot surgery. Her mother?s medical conditions include high cholesterol and lung cancer. Lifestyle adjustments such as abstaining from smoking and alcohol, reducing occupational workload from 30 hours to 24 hours due to pain, and utilizing Celebrex and Tylenol for managing her pain are relevant to her history. Chronic pain issues with occasional stiffness have persisted, with a past MRI indicating disc bulging. Her comprehensive allergy management prevents severe reactions. She notes dietary vigilance to prevent reactions and manages chronic constipation naturally. Despite willingness to consider stronger pain relief, the patient expressed hesitation owing to potential side effects. - Vaccines are up-to-date. - Mammogram completed recently; the follow-up for cervical polyps recommended, though not pursued due to discomfort. - Discussed colonoscopy; patient declined as well as Cologuard. - Recommendations for future cholesterol, sugar, kidney, and liver-related laboratory evaluations. [facility] Medical History (Updated 03/28/25 @ 11:49 by Naomi Ames MD) Sacroiliitis Polyp at cervical os Autoimmune thyroiditis B12 deficiency Migraines Right sided sciatica Right hip pain Left shoulder pain Chronic leukopenia Physical exam Nausea Hyponatremia Macrocytosis Multiple allergies Hypothyroidism Surgical History Tubal ligation status History of cholecystectomy History of foot surgery Family History Mother Lung cancer Hypercholesteremia Father No problems noted. 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 1. Little interest or pleasure in doing things: not at all 2. Feeling down, depressed, or hopeless: not at all 3. Trouble falling or staying asleep, or sleeping too much: several days 4. Feeling tired or having little energy: more than half the days 5. Poor appetite or overeating: not at all 6. Feeling bad about yourself - or that you are a failure or have let yourself or your family down: not at all 7. Trouble concentrating on things, such as reading the newspaper or watching television: not at all 8. Moving or speaking so slowly that other people could have noticed. Or the opposite - being so fidgety or restless that you have been moving around a lot more than usual: not at all 9. Thoughts that you would be better off or of hurting yourself in some way: not at all Total score: 3 Depression Screening Interpretation: Positive Depression Screening Follow-up: Existing condition and Follow-up Visit Requested Depression Screening Done: Yes 87639 - PHQ-9 Billing: Yes Source: Developed by Drs. German Virk, Katerine Roach, Job Ohara and colleagues, with an educational ric from [employer]. Thrive Questionnaire Date Thrive assessed: 03/21/25 I am a: Patient What is your living situation today?: I have a steady place to live Within the past 12 months, did the food you bought not last and you didn't have the money to get more?: Sometimes True Within the past 12 months, did you worry whether your food would run out before you got money to buy more?: Sometimes True Do you have trouble paying for medicines?: Yes Do you have trouble getting transportation to medical appointments?: No Do you have trouble paying your heating and electricity bill?: No Do you have trouble taking care of your child, family member or friend?: No Do you have trouble with day-to-day activities such as bathing, preparing meals, shopping, managing finances, etc.?: No Are you currently unemployed and looking for a job?: No Are you interested in more education?: No Please select the resources that you would like help with: None Currently or been in a relationship where the following occur: No concerns reported THRIVE Score: 2 AUDIT C Alcohol Use Questionnaire (AUDIT-C) 1. How often do you have a drink containing alcohol?: Never Total Score: 0 Score Reviewed/Action Taken: No JIM-7 AMB Questionnaire JIM-7 Date JIM - 7 assessed: 03/28/25 Feeling nervous, anxious, or on edge: 0 = Not at all Not being able to stop or control worryin = Not at all Worrying too much about different things: 0 = Not at all Trouble relaxin = Not at all Being so restless that it is hard to sit still: 0 = Not at all Becoming easily annoyed or irritable: 0 = Not at all Feeling afraid as if something awful might happen: 0 = Not at all Total JIM-7 score (0-4 normal; 5-9 mild; 10-14 moderate; 15-21 severe): 0 Source: Developed by Drs. German Virk, Katerine Roach, Job Ohara and colleagues, with an educational ric from [employer]. JIM-7 Assessment Billing JIM-7 Assessment Tool: JIM-7 Assessment 47421 Review of Systems Const All systems reviewed & are unremarkable except as noted in HPI and below Card Denies chest pain at rest, Denies chest pain with activity, Denies edema, Denies irregular heart rhythm, Denies claudication, Denies dyspnea, Denies dyspnea on exertion, Denies orthopnea, Denies paroxysmal nocturnal dyspnea and Denies slow heart rate Resp Denies cough, Denies dyspnea and Denies dyspnea on exertion GI Denies abdominal pain, Denies change in bowel habits, Denies excessive flatus, Denies nausea and Denies vomiting Denies urinary incontinence, Denies urinary hesitancy and Denies urinary urgency Musc Denies abnormal gait, Reports back pain, Denies atrophy, Denies deformity, Denies limited range of motion and Reports stiffness Neuro Denies abnormal gait, Denies behavioral changes and Denies lack of coordination Psych Denies behavioral changes Physical exam (Primary Care) Vital Signs: Last Vital Signs BP 120/72 03/28/25 08:59 BMI result Body Mass Index 17.9 Tobacco/Smoking Status: Tobacco use Status Tobacco use date assessed 03/28/25 03/28/25 09:06 Patient Tobacco Use Status Former Tobacco user 03/28/25 09:06 Tobacco use type Cigarette 03/28/25 09:06 e-Cigarette/Vaping Use Never Used 03/28/25 09:06 PHQ-9: PHQ-9 Score PHQ-9: Total score 3 03/28/25 10:58 Depression Screening Interpretation: Positive Depression Screening Follow-up: Existing condition and Follow-up Visit Requested Thrive Assessment: Date of Thrive Assessment Date Thrive assessed 03/21/25 03/28/25 09:06 Currently or been in a relationship where the following occur: No concerns reported HENMT Head: Yes normal to inspection, Yes normocephalic and Yes atraumatic Ears: external ears normal Eyes General: appearance normal, both eyes and all related structures Eyelids: Yes eyelids normal Conjunctivae: conjunctivae normal Neck Neck: Yes normal visual inspection and Yes supple Resp Effort & Inspection: normal respiratory effort Auscultation: clear to auscultation bilaterally Cardio Jugular venous distension: no JVD Rate: regular rate Rhythm: regular rhythm Heart sounds: S1 normal heart sound present and S2 normal heart sound present GI Inspection: Yes normal to inspection Palpation (GI): Soft to palpation and nontender Auscultation: normal bowel sounds Skin General skin exam: no rashes or lesions noted Neuro General: no focal motor deficits Extrem General: Yes full ROM Psych Appearance: grossly normal Coding Level of Care Code Est Pt Level 3 (32698) Est Pt Prev Care 40-64y(00927) Diagnoses Physical exam Z00.00 Nausea R11.0 Lumbar disc herniation M51.26 Additional Codes JIM-7 Assessment Billing - JIM-7 Assessment Tool: JIM-7 Assessment 84064 ([id number]) PHQ-9 - 84571 - PHQ-9 Billing: Yes ([id number]) Time Spent (min) 35 Assessment & Plan Assessment & Plan (1) Physical exam: Code(s): Z00.00 - Encounter for general adult medical examination without abnormal findings Category: Medical (2) Nausea: Code(s): R11.0 - Nausea Category: Medical (3) Lumbar disc herniation: Code(s): M51.26 - Other intervertebral disc displacement, lumbar region Category: Medical Plan Given the patient's annual physical status, maintaining current Celebrex use for chronic pain remains lopez, with acute episodes on opioids sparingly managed to minimize risk. Annual screenings are enforced to ensure better long-term health management, while dietary vigilance continues in allergy management. A more structured approach to managing constipation and nausea symptoms will enhance life quality. My plan encapsulates a regimen bound to safeguard against potential complications stemming from chronic issues. Patient was informed and verbally consented to the use of an ambient scribe for clinic note documentation during this visit. In discussion with the patient, I reviewed the chronic allergic reactions and associated gastrointestinal symptoms, particularly emphasizing adherence to a strict diet to negate gluten-induced discomfort. For pain management, I advocated Celebrex continuation and suggested sparing opioid use during severe episodes after discussing potential constipation, hallucination, and respiratory depression side effects. Side effects of the proposed medication were discussed, uniquely aligning with management techniques encompassing dietary amendments. For upcoming screenings, I underscored the significance of cholesterol, sugar, kidney, and liver assessments to preemptively manage looming metabolic concerns. Re-assessment of cervical polyps was suggested but deferred due to prior procedural discomfort. Owing to declines in colonoscopy, I outlined Cologuard as a non-invasive alternative, ensuring comprehension of its straightforward application. As instructed, medical follow-up will integrate a review of new screenings and management impact. Orders: Orders Lipid Panel Today E78.5 - Hyperlipidemia, unspecified Celiac Disease Panel Today Z91.018 - Allergy to other foods Thyroid Stimulating Hormone Today E06.3 - Autoimmune thyroiditis Comprehensive [place]. Panel Fast Today E78.5 - Hyperlipidemia, unspecified Vitamin D 25-OH Total Today E55.9 - Vitamin D deficiency, unspecified Medications: New oxycodone Partial Fill upon patient request. 5 mg PO BID PRN 10 tabs 0RF pain 30 days M51.36 - Other intervertebral disc degeneration, lumbar region ondansetron 8 mg PO Q12H PRN 60 tabs 1RF nausea and vomiting 30 days Patient Instructions: - Continue using Celebrex for daily pain management. - Use Tylenol and prescribed oxycodone only for severe pain. - Utilize hypoallergenic bandages. - Follow a gluten-free diet and avoid known allergens. - Get blood work done for cholesterol, sugar, kidney, and liver functions as advised. - Refill anti-nausea medication as needed. - Consider Cologuard for colon cancer screening. - Monitor and manage constipation with diet adjustments. - Follow up with recommended assessments and notify promptly regarding any severe reactions or conditions.
[2025-03-28 08:59] VITALS: BP 120/72; BMI 17.9
== END 2025-03-28 09:31 | disposition home or self-care (01) ==
LOC: HO.HMCH 08:57
PROVIDERS: PCP Internal Medicine; Visit Provider Internal Medicine
DX: Z00.00 Encounter for general adult medical examination without abnormal findings (principal); R11.0 Nausea; M51.26 Other intervertebral disc displacement, lumbar region

== ENCOUNTER → 2025-03-28 08:56 | Outpatient (BNVA) | payer OTHER, SELFPAY | PROVIDERS: PCP Internal Medicine; Visit Provider Internal Medicine | DX: Z00.00 Encounter for general adult medical examination without abnormal findings (principal); R11.0 Nausea; M51.26 Other intervertebral disc displacement, lumbar region; E06.3 Autoimmune thyroiditis; E78.5 Hyperlipidemia, unspecified; E55.9 Vitamin D deficiency, unspecified; M51.369 Other intervertebral disc degeneration, lumbar region without mention of lumbar back pain or lower extremity pain; Z98.51 Tubal ligation status; Z91.018 Allergy to other foods; Z91.010 Allergy to peanuts; Z91.09 Other allergy status, other than to drugs and biological substances | CPT/HCPCS: 96127; 99212; 99396 ==

== ENCOUNTER 2025-06-19 08:04 | Outpatient (AMB) | payer OTHER, SELFPAY ==
--- NOTE | 2025-06-19 08:13 | MHC.OFFVIS ---
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: Web Graphic Designer Present (SELENE Mijares) Accompanied by: Self / Same As Patient Allergies erythromycin base (ERYTHROMYCIN BASE) Allergy (Intermediate, Verified 06/19/25 08:21) HIVES gluten (GLUTEN) Allergy (Intermediate, Verified 06/19/25 08:21) tongue swells, tingling peanut Allergy (Intermediate, Verified 06/19/25 08:21) TONGUE SWELLS soy (SOY) Allergy (Intermediate, Verified 06/19/25 08:21) tongue swells Is last menstrual period known: No Post menopausal: Yes Patient : No HPI Comments Details: Patient is a postmenopausal woman 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 Leg Assembler concerns: none. Currently not sexually active. Denies any vaginal dryness or irritation. STI testing offered; she declines. Attempting to eat a healthy diet with calcium and vitamin D and stays active with exercise-limited w/pain. Last pap smear; 2023, negative. Last mammogram; 2024. Colonoscopy is not UTD. Denies any family history of breast, ovarian or colon cancer. [facility] Medical History (Updated 06/19/25 @ 08:49 by Xochilt Rivera CNM) Cervical polyp Sacroiliitis Polyp at cervical os Autoimmune thyroiditis B12 deficiency Migraines Right sided sciatica Right hip pain Left shoulder pain Chronic leukopenia Physical exam Nausea Hyponatremia Macrocytosis Multiple allergies Hypothyroidism Surgical History Tubal ligation status History of cholecystectomy History of foot surgery Family History Mother Lung cancer Hypercholesteremia Father No problems noted. 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 Current occupational exposures/hazards: No Cognitive needs: No Hearing needs: No Vision needs: No Female Reproductive History Menstrual control method: none Total pregnancies: 5 Full term: 4 Ab spontaneous: 1 Date of Mammogram: 01/23/25 (bi rad 1) Review of Systems Const All systems reviewed & are unremarkable except as noted in HPI and below Reports as per HPI Eyes Reports no additional complaints ENT Reports no additional complaints Card Reports no additional complaints Resp Reports no additional complaints GI Reports as per HPI and Reports no additional complaints Reports as per HPI Musc Reports no additional complaints Skin/Breast Reports as per HPI Neuro Reports no additional complaints Psych Reports no additional complaints Endo Reports no additional complaints Nolan/Lymph Reports no additional complaints Aller/Immun Reports no additional complaints Physical Exam Vital Signs: Last Vital Signs BP 104/68 06/19/25 08:19 BMI result Body Mass Index 17.9 Const General: cooperative, healthy appearing, no acute distress, well developed and alert Orientation/consciousness: patient oriented x3 HEENT Head: Yes normal to inspection Eyes General: appearance normal, both eyes and all related structures Neck Neck: Yes normal visual inspection Thyroid: Thyroid normal Chest Chest palpation & inspection: normal inspection of the chest and other (no puckering, dimpling, peau de orange, retraction, discharge, masses) Breast/axilla inspection: normal inspection of the breasts Breast/axilla palpation: normal palpation of the breasts Resp Effort & Inspection: normal respiratory effort GI Inspection: Yes normal to inspection Palpation (GI): Soft to palpation Rectal Exam - Female: deferred General: Yes bladder normal to palpation External Female Exam: normal external appearance and normal appearance of the urethra Speculum Exam - Vagina: normal appearance of the vagina, normal palpation, normal vaginal discharge and vagina atrophic Speculum Exam - Cervix: normal appearance of the cervix, normal palpation and Cervical mass present (2 small polyps) Bimanual exam- vagina & uterus: normal bimanual exam, normal palpation, uterine size normal, bladder normal to palpation, normal palpation and non-tender Bimanual Exam- Adnexa, other: no masses Skin General skin exam: no rashes or lesions noted Rashes: no rashes Neuro General: patient oriented x3 Cognition (Neuro): normal cognition Extrem General: Yes normal to inspection Psych Attitude: cooperative Thought process: Normal thought process present Assessment & Plan Assessment & Plan (1) Encounter for well woman exam with routine gynecological exam: Code(s): Z01.419 - Encounter for gynecological examination (general) (routine) without abnormal findings Category: Medical Plan: Discussed: Current recommendations for pap smears per ASCCP guidelines. Breast awareness, periodic self breast exams and yearly mammogram. Maintain a healthy lifestyle, well balanced diet including Calcium 1,200 mg and Vitamin D 600 IU daily, and routine exercise. Contact the office with any postmenopausal bleeding. Patient verbalizes understanding and agrees to the plan of care. She was given opportunity to ask questions and all questions were answered to the best of my ability. 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 This note is constructed using voice recognition software. While every effort has been made to ensure accuracy, marine safety officer errors may have been included. (2) Cervical polyp: Code(s): N84.1 - Polyp of cervix uteri Category: Medical Plan Counseled regarding cervical polyps, small risk of abnormal cells including atypia, precancer or cancer. Patient is adamant not to have it removed she, attempts last year were made and she does not want to treat retry again. She does not have any vaginal bleeding, pelvic pain or bloating. Advised to call if there are any changes. Offered removal under local anesthetic or with Dr. Henriquez as alternative, she adamantly declines removal of cervical polyps. The patient expressed understanding and agreement with the plan of care. All of her questions and concerns were addressed to the best of my ability. Coding Level of Care Code Est Pt Prev Care 40-64y(40928) Diagnoses Encounter for well woman exam with routine gynecological exam Z01.419 Cervical polyp N84.1
[2025-06-19 08:19] VITALS: BP 104/68; BMI 17.9
== END 2025-06-19 08:44 | disposition home or self-care (01) ==
LOC: HO.HWS 08:04
PROVIDERS: PCP Internal Medicine; Visit Provider Advanced Practice Midwife
DX: Z01.419 Encounter for gynecological examination (general) (routine) without abnormal findings (principal); N84.1 Polyp of cervix uteri
CPT/HCPCS: 99396; 99459

== ENCOUNTER → 2025-06-19 08:04 | Outpatient (BNVA) | payer OTHER, SELFPAY | PROVIDERS: PCP Internal Medicine; Visit Provider Advanced Practice Midwife | DX: Z01.419 Encounter for gynecological examination (general) (routine) without abnormal findings (principal); N84.1 Polyp of cervix uteri | CPT/HCPCS: 99396 ==